=== PATIENT | female | born 1930 | race Caucasian/White ===

== ENCOUNTER 2017-07-15 09:30 | Inpatient (IN) | payer MEDICARE ==
[2017-07-15] MEDS ORDERED: fentaNYL* 50 MCG/ML 2 ML VIAL (100 MCG VIAL) ONE ×2 (09:58→10:57)
[2017-07-15] MEDS ORDERED: Midazolam* 1 MG/ML 10 ML VIAL (10 MG) ONE (09:58)
[2017-07-15] MEDS ORDERED: VERAPAMIL 2.5 MG/ML 4 ML VIAL ONE (09:58)
[2017-07-15] MEDS ORDERED: nitroGLYCERIN DRIP* 25,000 MCG/250 ML BTL ONE (09:59)
[2017-07-15] MEDS ORDERED: Ticagrelor* 90 MG TAB PO ONE (09:59)
[2017-07-15] MEDS ORDERED: Heparin(*) 1000 UNIT/ML 10 ML VIAL CATH LAB IV ONE (09:59)
[2017-07-15] MEDS ORDERED: Heparin 2 UNITS/ML IVPREMIX* 2,000 ML IV ONE (09:59)
[2017-07-15] MEDS ORDERED: Nitroglycerin TAB 0.4 MG* 0.4 MG TAB ONE (09:59)
[2017-07-15] MEDS ORDERED: Lidocaine 1% INJ* 10 MG/ML 30 ML SDV ONE (09:59)
[2017-07-15] MEDS ORDERED: Heparin VIAL(*) 5000 UNITS/ML VIAL (FIVE THOUSAND) ONE (10:01)
[2017-07-15 10:02] LABS: ABS Basophils 0 10^3/ul (0-0.2); ABS Eosinophils 0.2 10^3/ul (0-0.6); ABS Lymphocytes 2.8 10^3/ul (1.0-4.8); ABS Monocytes 0.8 10^3/ul (0-0.8); ABS Neutrophils 7.3 10^3/ul (1.5-7.7); ABS Nucleated RBC 0 10^3/ul; Eosinophil % 2.2 % (0-6); Hematocrit 36 % (35-47); Hemoglobin 11.8 g/dl (12.0-16.0); Lymphocyte % 24.8 % (25-47); Mean Corpuscular HGB Conc 32 g/dl (31-36); Mean Corpuscular Hemoglobin 30 pg (27-31); Mean Corpuscular Volume 92 fL (80-97); Mean Platelet Volume 9 um3 (7.4-10.4); Nucleated Red Blood Cells % 0; Platelet Count 412 10^3/ul (150-450); Red Blood Count 3.94 10^6/ul (4.0-5.4); Red Cell Distribution Width 16 % (10.5-15); White Blood Count 11.2 10^3/ul (3.5-10.8)
[2017-07-15] MEDS ORDERED: Clopidogrel TAB* 300 MG ONE (10:06)
[2017-07-15 10:12] LABS: INR 0.93 (0.77-1.02)
[2017-07-15 10:13] LABS: EGFR Non-African American 60.4 (>60)
[2017-07-15] MEDS ORDERED: Metoprolol Tartrate IV* 1 MG/ML 5 ML VIAL ONE (10:14)
[2017-07-15] MEDS ORDERED: Iohexol 350 (CONTRAST) 200 ML MDV IV ONE (10:25)
--- NOTE | 2017-07-15 10:58 | RAD ---
Indication: Chest pain. Single frontal view of the chest performed at 1004 hours was reviewed. Comparison is made with previous exam dated March 19, 2010. Cardiomegaly is noted. Interstitial edema consistent with vascular congestion is noted. No pleural fluid is identified. IMPRESSION: CARDIOMEGALY WITH INTERSTITIAL EDEMA CONSISTENT WITH CHF.
--- NOTE | 2017-07-15 11:29 | ED ---
Elba Jacobson Gabriel, scribed for Harsha Reyes MD on 07/15/17 at 0943 . HPI Chest Pain - HPI Summary HPI Summary: This patient is a 86 year old F BIBA to [facility] accompanied by her family with a chief complaint of 10/10 CP she woke up. The patient rates the pain currently 2 /10 in severity located mid sternal and radiating into her neck. Patient reports SOB. Patient was [id number] mg of ASA by EMS and her CP has decreased. She reports having a similar pain a couple days ago. Code STEMI was called [employer] PROJECT MANAGER in ED. On arrival Dr. Reyes showed the first EKG to Dr. Hicks, microbiology lab manager, at bedside. He did not believe she was having a STEMI. - History of Current Complaint Hx Obtained From: Patient, EMS Onset/Duration: Started Hours Ago Timing: Constant Initial Severity: Severe Current Severity: Mild Pain Intensity: 2 Pain Scale Used: 0-10 Numeric Chest Pain Location: Mid Sternal Chest Pain Radiates: Yes Chest Pain Radiates To:: Neck Character: Pressure/Squeezing Alleviating Factor(s): Medication Associated Signs and Symptoms: Positive: Chest Pain, Shortness of Breath - Allergy/Home Medications Allergies/Adverse Reactions: Allergies Allergy/AdvReac Type Severity Reaction Status Date / Time Statins Allergy Unknown Verified 01/24/15 15:38 Reaction Details Home Medications: Home Medications Aspirin EC Low Dose* [Ecotrin EC Low Dose 81 MG*] 81 mg PO DAILY 07/15/17 [ History Confirmed 07/15/17] Cyanocobalamin TAB* [Vitamin B12 TAB*] 250 mcg PO DAILY 07/15/17 [History Confirmed 07/15/17] Hydrochlorothiazide TAB* [Hydrodiuril TAB*] 12.5 mg PO DAILY 07/15/17 [History Confirmed 07/15/17] Insulin GLARGINE(*) [Lantus(*)] 28 units SUBCUT BEDTIME 07/15/17 [History Confirmed 07/15/17] Metoprolol Succinate XL TAB* [Toprol XL TAB*] 25 mg PO DAILY 07/15/17 [History Confirmed 07/15/17] Omeprazole CAP* [Prilosec CAP* 20 MG] 20 mg PO DAILY 07/15/17 [History Confirmed 07/15/17] Quinapril (NF) [Accupril (NF)] 40 mg PO BID 07/15/17 [History Confirmed 07/15/17 ] glipiZIDE TAB.XL* [Glucotrol XL*] 10 mg PO DAILY 07/15/17 [History Confirmed 02/22] metFORMIN* [Glucophage 500 MG TAB *] 500 mg PO BID 07/15/17 [History Confirmed 07/15/17] PMH/Surg Hx/FS Hx/Imm Hx Infectious Disease History: Denies: Traveled Outside the [place] in Last 30 Days - Social History Alcohol Use: None Substance Use Type: Reports: None Smoking Status (MU): Former Smoker Review of Systems Positive: Chest Pain Positive: Shortness Of Breath All Other Systems Reviewed And Are Negative: Yes Physical Exam - Summary Physical Exam Summary: Appearance: Well-appearing, Well-nourished, slightly anxious Skin: Warm, dry, no diaphoresis. Eyes: Normal ENT: Normal Neck: Supple, nontender Respiratory: Clear to auscultation, Good peripheral Cardiovascular: Normal Abdomen: Soft, nontender Bowel: Present Musculoskeletal: Normal, Strength/ROM Intact Neurological: Normal, A&Ox3 Psychiatric: Normal Triage Information Reviewed: Yes Vital Signs On Initial Exam: Initial Vitals Temp Pulse Resp BP Pulse Ox 36.8 C 85 20 120/66 89 07/15/17 09:41 07/15/17 09:41 07/15/17 09:41 07/15/17 09:41 07/15/17 09:41 Vital Signs Reviewed: Yes Diagnostics - Vital Signs Vital Signs Temp Pulse Resp BP Pulse Ox 07/15/17 10:46 37.2 C 91 20 86/49 94 07/15/17 09:41 36.8 C 85 20 120/66 89 - Laboratory Lab Results: Lab Results 07/15/17 07/15/17 07/15/17 Range/Units 09:42 09:42 09:42 WBC 11.2 H (3.5-10.8) 10^3/ul RBC 3.94 L (4.0-5.4) 10^6/ul Hgb 11.8 L (12.0-16.0) g/dl Hct 36 (35-47) % MCV 92 (80-97) fL MCH 30 (27-31) pg MCHC 32 (31-36) g/dl RDW 16 H (10.5-15) % Plt Count 412 (150-450) 10^3/ul MPV 9 (7.4-10.4) um3 Neut % (Auto) 65.2 (38-83) % Lymph % (Auto) 24.8 L (25-47) % Montague % (Auto) 7.6 (1-9) % Eos % (Auto) 2.2 (0-6) % Baso % (Auto) 0.2 (0-2) % Absolute Neuts (auto) 7.3 (1.5-7.7) 10^3/ul Absolute Lymphs (auto) 2.8 (1.0-4.8) 10^3/ul Absolute Monos (auto) 0.8 (0-0.8) 10^3/ul Absolute Eos (auto) 0.2 (0-0.6) 10^3/ul Absolute Basos (auto) 0 (0-0.2) 10^3/ul Absolute Nucleated RBC 0 10^3/ul Nucleated RBC % 0 INR (Anticoag Therapy) 0.93 (0.77-1.02) APTT 28.4 (26.0-36.3) seconds Sodium 132 L (133-145) mmol/L Potassium 4.1 (3.5-5.0) mmol/L Chloride 100 L (101-111) mmol/L Carbon Dioxide 24 (22-32) mmol/L Anion Gap 8 (2-11) mmol/L BUN 23 (6-24) mg/dL Creatinine 0.89 (0.51-0.95) mg/dL Est GFR ( Amer) 77.7 (>60) Est GFR (Non-Af Amer) 60.4 (>60) BUN/Creatinine Ratio 25.8 H (8-20) Glucose 329 H (70-100) mg/dL Lactic Acid (0.5-2.0) mmol/L Calcium 9.0 (8.6-10.3) mg/dL Magnesium 1.8 L (1.9-2.7) mg/dL Total Bilirubin 0.40 (0.2-1.0) mg/dL AST 11 L (13-39) U/L ALT 7 (7-52) U/L Alkaline Phosphatase 75 (34-104) U/L Troponin I 0.09 H* (<0.04) ng/mL Total Protein 7.4 (6.4-8.9) g/dL Albumin 3.7 (3.2-5.2) g/dL Globulin 3.7 (2-4) g/dL Albumin/Globulin Ratio 1.0 (1-3) Blood Type Antibody Screen 07/15/17 07/15/17 Range/Units 09:42 09:44 WBC (3.5-10.8) 10^3/ul RBC (4.0-5.4) 10^6/ul Hgb (12.0-16.0) g/dl Hct (35-47) % MCV (80-97) fL MCH (27-31) pg MCHC (31-36) g/dl RDW (10.5-15) % Plt Count (150-450) 10^3/ul MPV (7.4-10.4) um3 Neut % (Auto) (38-83) % Lymph % (Auto) (25-47) % Montague % (Auto) (1-9) % Eos % (Auto) (0-6) % Baso % (Auto) (0-2) % Absolute Neuts (auto) (1.5-7.7) 10^3/ul Absolute Lymphs (auto) (1.0-4.8) 10^3/ul Absolute Monos (auto) (0-0.8) 10^3/ul Absolute Eos (auto) (0-0.6) 10^3/ul Absolute Basos (auto) (0-0.2) 10^3/ul Absolute Nucleated RBC 10^3/ul Nucleated RBC % INR (Anticoag Therapy) (0.77-1.02) APTT (26.0-36.3) seconds Sodium (133-145) mmol/L Potassium (3.5-5.0) mmol/L Chloride (101-111) mmol/L Carbon Dioxide (22-32) mmol/L Anion Gap (2-11) mmol/L BUN (6-24) mg/dL Creatinine (0.51-0.95) mg/dL Est GFR ( Amer) (>60) Est GFR (Non-Af Amer) (>60) BUN/Creatinine Ratio (8-20) Glucose (70-100) mg/dL Lactic Acid 3.0 H* (0.5-2.0) mmol/L Calcium (8.6-10.3) mg/dL Magnesium (1.9-2.7) mg/dL Total Bilirubin (0.2-1.0) mg/dL AST (13-39) U/L ALT (7-52) U/L Alkaline Phosphatase (34-104) U/L Troponin I (<0.04) ng/mL Total Protein (6.4-8.9) g/dL Albumin (3.2-5.2) g/dL Globulin (2-4) g/dL Albumin/Globulin Ratio (1-3) Blood Type A Positive Antibody Screen Positive Result Diagrams: 07/15/17 09:42 07/15/17 09:42 Lab Statement: Any lab studies that have been ordered have been reviewed, and results considered in the medical decision making process. - Radiology CXR Radiology Interpretation Completed By: Radiologist - CARDIOMEGALY WITH INTERSTITIAL EDEMA CONSISTENT WITH CHF. ED physician has reviewed this radiology report. - EKG 0952 Cardiac Rate: NL EKG Rhythm: Sinus Rhythm Chest Pain Course/Dx - Course Assessment/Plan: persistnet R sided Elevations seen on repeat EKGs, patient given 325mg ASA prior to arrival in ED, evaluated by microbiology lab manager at bedside, taken to golf course laborer - Diagnoses Provider Diagnoses: STEMI (ST elevation myocardial infarction) During the Visit The Following Alert/Code Occurred: STEMI - Provider Notifications Discussed Care Of Patient With: Sal Hicks Discharge - Discharge Plan Condition: Critical Disposition: ADMITTED TO [facility] Discharge Disposition Comment: taken to golf course laborer The documentation as recorded by the Elba sifuentes Gabriel accurately reflects the service I personally performed and the decisions made by Amy haro Dong, MD.
[2017-07-15] MEDS ORDERED: Ondansetron INJ* 2 MG/ML VIAL ONE (11:41)
[2017-07-15] MEDS ORDERED: NS 0.9% 1000 ML* 1,000 ML IV SCH (12:00)
--- NOTE | 2017-07-15 12:08 | HP ---
CC: Dr. Margy Wilkins; Dr. Deandra Hammond * ADMISSION HISTORY AND PHYSICAL: DATE OF ADMISSION: 07/15/17 INDICATION FOR ADMISSION: Inferior wall myocardial infarction, atrial fibrillation. HISTORY OF PRESENT ILLNESS: The patient is an 86-year-old woman, who has been having intermittent chest pain for the past week. She describes it as a pressure in the center of her chest. Sometimes it is epigastric in discomfort. It does not radiate. She does get some mild nausea associated with it. She has no diaphoresis. This morning, she got up and started having the same discomfort. It was much worse that she had ever had in the past. She rated it as an 8/10. She was short of breath with discomfort. She had the same discomfort and some mild nausea associated with it. She called her daughter, who immediately called the ambulance. On arrival of the ambulance, the patient' s EKG showed atrial fibrillation with concerns of ST-segment elevations in the inferior leads. The patient was transported to the emergency room. On arrival in the emergency room, the patient was continued to have this discomfort. It is decreased to a 4/10. Her initial EKG demonstrates atrial fibrillation with ST-segment elevations in leads III, aVF with ST-segment depressions in leads V2 and V3. PAST MEDICAL HISTORY: Significant for diabetes, hypertension, history of paroxysmal atrial fibrillation, history of posttraumatic subdural hematoma secondary to a fall in 2005. OUTPATIENT MEDICATIONS: 1. Accupril 40 mg a day. 2. Metformin 500 mg 2 tablets a day. 3. Glipizide 10 mg a day. 4. Aspirin 81 mg a day. 5. Toprol-XL 25 mg a day. 6. Hydrochlorothiazide 12.5 mg a day. 7. Omeprazole 20 mg a day. 8. Insulin as directed. ALLERGIES: She is intolerant of statin therapy. FAMILY HISTORY: Father of myocardial infarction at 64. SOCIAL HISTORY: She lives alone. She lives independently. She denies tobacco or alcohol use. REVIEW OF SYSTEMS: Negative for fevers or chills. Negative for changes in bowel or bladder habits. Negative for weight changes. Other 10-point review was unremarkable. PHYSICAL EXAMINATION VITAL SIGNS: Height is 5 feet 1 inch, weight is 140 pounds, temperature 98.3, heart rate is 85, respiratory rate is 20, blood pressure 120/66. HEENT: Sclerae anicteric. Oropharynx is pink without erythema. Carotids are 2 + without bruits. NECK: JVD is normal. Thyroid is normal. LUNGS: Have mild rales at the bases. There is no dullness to percussion. CARDIAC: S1, S2, regular. No murmurs, rubs, or gallops. ABDOMEN: Soft, nontender, nondistended with normoactive bowel sounds. EXTREMITIES: Showed no edema. She has 2+ pulses throughout. NEUROLOGIC: The patient is awake, alert, and oriented. She moves all 4 extremities equally. DIAGNOSTIC STUDIES/LAB DATA: The patient's laboratory studies from 05/02/17 shows her chemistries are within normal limits. BUN 22, creatinine 0.82. AST and ALT were normal at that time. Cholesterol levels in April of 2016 demonstrates a total cholesterol of 167, LDL of 99, HDL of 34. TSH was 1.26 in December of 2015. Again, laboratory studies from today in the emergency room are not back yet. EKG at 10 o'clock demonstrates normal sinus rhythm with ST-segment elevations in lead III, aVF with ST-segment depression in lead V2 and V3. IMPRESSION: This is an 86-year-old female with a history of hypertension, diabetes, who came to the emergency room with typical anginal-type symptoms. Her initial EKG in the emergency room is atrial fibrillation with ST-segment elevations. Repeat EKG at 10 o'clock demonstrates normal sinus rhythm with ST- segment elevations. PLAN: The patient will go to cardiac catheterization. The risks and benefits were described in great detail to the patient and her daughter. Further recommendations pending her cardiac catheterization. [id number]/[facility] #: [id number] [facility]ENTER[facility]ionic[facility]
[2017-07-15] MEDS ORDERED: Perflutren Lipid Microsphere* 3 ML VIAL ONE (13:13)
[2017-07-15] MEDS: Captopril TAB* 12.5 MG PO SCH (14:19)
[2017-07-15] MEDS: Metoprolol Tartrate TAB* 25 MG PO SCH ×2 (14:20→20:12)
--- NOTE | 2017-07-15 15:35 | ECHO ---
Patient: BRANDI CELESTIN [facility] Rec#: [id number] : 1930 Date: 07/15/2017 Age: 86y Height: 154.94 cm / 61.0 in Weight: 63.5 kg / 140.0 lbs Sex: F BSA: 1.62 Room#: ICU 1 Admit Date#: 07/15/2017 Type: Inpatient Referring: Deandra Hammond MD Reading: Sal Hicks MD Claims Attorney: Katherin Burrows,JESSICACS,RDMS CC: Margy Wilkins MD Transthoracic Echocardiogram Indication: Acute Myocardial Infarction BP: 86/49 HR: 68 Rhythm: NSR Findings History: S/P STEMI and PCI, DM, HTN, syncope Technical Comments: The study quality is fair. The study was technically limited due to the patient's inability to lay in the left lateral decubitus position. Left Ventricle: The left ventricular chamber size is normal. Mild concentric left ventricular hypertrophy is observed. There are multiple regional wall motion abnormalities. There is moderately decreased left ventricular systolic function. The estimated ejection fraction is 35-40%. There is no consistent Doppler evidence of clinically significant diastolic dysfunction. The apical lateral wall segment is hypokinetic (score 2). The basal inferior, mid inferior, and apical inferior wall segments are akinetic (score 3). Overall wallmotion score index is 2.75 Left Atrium: The left atrium is moderate to severely dilated. Right Ventricle: The right ventricular chamber size and systolic function are within normal limits. Right Atrium: The right atrial cavity size is normal. Aortic Valve: The aortic valve is trileaflet. The aortic valve leaflets are mildly thickened. Systolic excursion of the aortic valve cusps is reduced. There is a trace of aortic regurgitation. There is no evidence of aortic stenosis. Mitral Valve: Severe mitral annular calcification present. The mitral valve leaflets are mildly thickened. There is moderate to severe mitral regurgitation. There is mild mitral stenosis. Tricuspid Valve: The tricuspid valve leaflets are normal. There is no evidence of tricuspid valve regurgitation. Unable to estimate the right ventricular systolic pressure. Pulmonic Valve: There is no evidence of pulmonic valve thickening. There is no evidence of pulmonic regurgitation. Pericardium: There is no significant pericardial effusion. Aorta: There is borderline dilatation of the ascending aorta. The aortic arch is not well visualized. There is no dilation of the aortic root. Pulmonary Artery: The main pulmonary artery is not well visualized. Venous: The inferior vena cava is dilated. There is a greater than 50% respiratory change in the inferior vena cava dimension. Contrast: Definity was used to optimize study. A total of 3 ml was used Conclusions Mild concentric left ventricular hypertrophy is observed. There is moderately decreased left ventricular systolic function. The estimated ejection fraction is 35-40%. The apical lateral wall segment is hypokinetic (score 2). The basal inferior, mid inferior, and apical inferior wall segments are akinetic (score 3). The right ventricular chamber size and systolic function are within normal limits. The left atrium is moderate to severely dilated. There is a trace of aortic regurgitation. There is moderate to severe mitral regurgitation. There is no evidence of tricuspid valve regurgitation. Unable to estimate the right ventricular systolic pressure. There is no significant pericardial effusion. Compared to study of 02/17/10, the LV dysfunction and MR are new Measurements Name Value Normal Range RVIDd (AP) 2D 2 cm (0.9 - 2.6) RVDdMajor (2D) 2.5 cm (2.2 - 4.4) RAd ISD 4CH 4.4 cm (3.4 - 4.9) RA (A4C)W 3.1 cm (2.9 - 4.6) IVSd (2D) 1.2 cm (0.6 - 1) LVPWd (2D) 1.3 cm (0.6 - 1) LVIDd (2D) 4.6 cm (3.6 - 5.4) LVIDs (2D) 3.7 cm - LV FS (2D) 21 % (25 - 45) Aortic Annulus 2 cm (1.4 - 2.6) Ao root diameter (2D) 2.8 cm (2.1 - 3.5) Ascending Ao 3.5 cm (2.1 - 3.4) LA dimension (AP) 2D 4.1 cm (2.3 - 3.8) LAd ISD 4CH 6.1 cm (2.9 - 5.3) LA ISD 4CH W 6 cm (2.5 - 4.5) Name Value Normal Range LA ESV SP 4CH (A/L) 100.11 ml - LA ESV SP 2CH (A/L) 127.3 ml - LA ESV BP (A/L) 115.32 ml - LA ESV BP (A/L) index 71 ml/m2 - LA ESV SP 4CH (MOD) 93.59 ml - LA ESV SP 2CH (MOD) 118.54 ml - Name Value Normal Range MV E-wave Vmax 1.2 m/sec - MV deceleration time 206 msec - MV A-wave Vmax 0.9 m/sec - MV E:A ratio 1.3 ratio - LV septal e' Vmax 0.03 m/sec - LV lateral e' Vmax 0.07 m/sec - LV E:e' septal ratio 40 ratio - LV E:e' lateral ratio 17 ratio - Name Value Normal Range AV Vmax 1.8 m/sec - AV VTI 46 cm - AV peak gradient 13 mmHg - AV mean gradient 7.8 mmHg - LVOT Vmax 0.7 m/sec - LVOT VTI 20 cm - LVOT peak gradient 2 mmHg - LVOT mean gradient 1.1 mmHg - JOSEPHINE Vmax 0.3 m/sec - Name Value Normal Range MV Vmax 1.4 m/sec - MV VTI 41 cm - MV peak gradient 8 mmHg - MV mean gradient 2.9 mmHg - MV PHT 80 msec - MR Vmax 4.9 m/sec - MR VTI 180 cm - MR flow (PISA) 79 ml/sec - MR PISA radius 0.6 cm - MR alias Vmax 31 cm/sec - MVA (PHT) 2.5 cm2 - Name Value Normal Range RAP 8 mmHg - IVC diameter 2.3 cm - Name Value Normal Range PV Vmax 0.6 m/sec - PV peak gradient 1.4 mmHg - Wallmotion BAS Not Seen BA Not Seen BAL Not Seen ANA Not Seen BI Akinetic BIS Not Seen MAS Not Seen MA Not Seen MAL Not Seen MIL Not Seen TN Akinetic MIS Not Seen Not Seen AA Not Seen AL Hypokinetic AI Akinetic APEX Hypokinetic
[2017-07-15] MEDS ORDERED: Furosemide IV* 10 MG/ML 2 ML VIAL (20 MG) IV ONE (16:13)
[2017-07-15] MEDS ORDERED: Furosemide IV* 10 MG/ML 2 ML VIAL (20 MG) ONE (16:20)
[2017-07-15] MEDS ORDERED: Enoxaparin(*) 60 MG/0.6 ML SYR SUBCUT SCH (17:00)
[2017-07-15] MEDS ORDERED: Dextrose 50% Syringe 50 ML* 25 GM/50 ML SYRINGE IV PUSH PRN (17:35)
[2017-07-15] MEDS: Insulin LISPRO* 1 UNITS UNIT SUBCUT SCH (17:56)
[2017-07-16] MEDS: Captopril TAB* 12.5 MG PO SCH ×2 (00:38→08:08)
[2017-07-16] MEDS: Insulin LISPRO* 1 UNITS UNIT SUBCUT SCH (00:39)
[2017-07-16] MEDS: Metoprolol Tartrate TAB* 25 MG PO SCH ×2 (03:50→06:27)
[2017-07-16] MEDS ORDERED: Nitroglycerin 2% OINT* 1 GM PAK TOPICAL SCH (06:00)
[2017-07-16 06:47] LABS: EGFR Non-African American 63.7 (>60)
[2017-07-16] MEDS ORDERED: Insulin LISPRO* 1 UNITS UNIT SUBCUT SCH (07:30)
[2017-07-16 08:11] VITALS: BP 135/76
--- NOTE | 2017-07-16 08:21 | CATH ---
CC: Dr. Hicks. CATH REPORT: DATE OF PROCEDURE: 07/15/17 CASHIER RECEPTIONIST: Dr. Hicks. PROCEDURES: Right radial artery access, abandoned. right common femoral artery access sheath 6F, bilateral selective coronary cineangiography, left heart catheterization, left ventriculography, right femoral artery angiogram, Angio-Seal RFA. HISTORY: An 86-year-old woman presenting with atrial fibrillation and chest pain, inferior ST elevation, followed by spontaneous reversion to sinus rhythm. She was seen by Dr. Hicks in the ER, was brought to the lab aide for emergent catheterization. PROCEDURE ACCESS: Right radial artery, evaluated with ultrasound, diameter barely 2 mm with heavy focal intimal calcification. The artery was easily entered with ultrasound guidance, but the wire would not advance fully; radial access was therefore abandoned. The right groin was prepped, draped, anesthetized, and evaluated with ultrasound; entry point was selected with ultrasound. Sheath entry 6F. MEDICATIONS: 1. Subcu lidocaine. 2. IV Versed. 3. IV fentanyl. DIAGNOSTIC CATHETER: 6FL4, 6FR4, 6FI may used for the RCA, 6F pigtail. HEMODYNAMICS: Initial BP 102/62, LV post angiography 104/10-27, no aortic valve gradient on pullback. ANGIOGRAPHY: She was given IV volume loading for systolic blood pressure initially in the 80 to 90s. RFA sheath entry is in segment 2, just above an eccentric plaque, which was identified with ultrasound. The left coronary artery as well as the right coronary artery are all heavily calcified. The mitral annulus is densely calcified. Left Main: The left main is normal without stenosis. LAD: The LAD has an ostial 40% to 50% stenosis. The LAD then supplies a moderate caliber diagonal which has lengthy proximal 80% stenosis. The LAD beyond this diagonal in its mid portion has tubular 80% stenosis. Distally, the LAD ends past the apex. Circumflex: The circumflex is not dominant, is calcified, diffusely diseased, has a fairly discrete 90% stenosis in its proximal portion, then supplies a single large marginal which has diffuse scattered plaquing including at a bifurcation point with severe distal diffuse disease. The OM is graftable. RCA: The RCA has moderate proximal tubular stenosis, has a more discrete 75% stenosis in its mid portion, at the acute margin there is a 95% stenosis straddling the origin of a small RV branch, the PDA is small followed by several small posterolaterals. There is moderate stenosis at the crux. There are left to right distal collaterals. LV GRAM: 14 cc per second for 2 seconds reveals moderate MR, inferior hypokinesis, estimated LVEF of 40% to 45%. CONCLUSION: 1. Severe three-vessel disease. 2. Markedly elevated filling pressures. 3. LV systolic dysfunction with regional wall motion abnormality. 4. Unsuccessful right radial access feasibility due to small vessel size with heavy intimal calcification, successful right femoral access, Angio-Seal. [id number]/[facility] #: [id number] [facility]ENTERDionicio
--- NOTE | 2017-07-16 08:30 | TRS ---
CC: Dr. Margy Wilkins; Dr. Hammond; Dr. Harshal Wells, [facility] TRANSFER SUMMARY: TODAY'S DATE: 07/15/17 DATE OF TRANSFER: 07/16/17 INDICATION FOR TRANSFER: Acute myocardial infarction, three-vessel coronary artery disease, need for coronary artery bypass surgery. HISTORY OF PRESENT ILLNESS: The patient is an 86-year-old woman with history of diabetes and hyperte nsion who came to the emergency room on 07/15/17 with an acute inferior wall myocardial infarction. Please see my admission history and physical for details of her presentation. Patient underwent a cardiac catheterization by Dr. Hammond. The cardiac catheterization showed severe three-vessel coronary artery disease with the left anterior descending artery showing moderate disea se to the proximal vessel, a long 90% stenosis to the mid LAD. The distal LAD had good vessel with a 2-mm vessel. The D1 vessel off of the LAD had a long 90% stenosis of the proximal portion. The left circumflex artery had a proximal 80% stenosis and a mid 90% stenosis. The right coronary artery had a proximal 70% stenosis with haziness consistent with possible thrombus. Her distal right coronary artery had sequential 80% stenosis. The PDA was a small vessel about 1.5 mm in size. Posterolateral branches were same, about 1.5 mm in size. Patient had an echocardiogram today which demonstrated moderately reduced LV systolic function, eject ion fraction of 35% with inferior wall severe hypokinesis. She also had [id number] mitral reg urgitation. After reviewing the cardiac catheterization and the echocardiogram, it was determined the patient wou ld be best served with coronary artery bypass surgery with mitral valve repair. This case was discus sed with Dr. Wells who accepts the patient in transfer. TRANSFER MEDICATIONS: 1. Aspirin 81 mg a day. 2. Metoprolol tartrate 25 mg q.6 hours. 3. Captopril 325 mg p.o. 3 times a day. 4. Nitroglycerin topical. Please note the patient did get 300 mg of Plavix in the emergency room at approximately 9 o'clock in the morning on 07/15/17. ALLERGIES: STATIN medications, unclear what the true allergy is. DISPOSITION: The patient will be transferred to [facility] under the care of Dr. Jordi west. [id number]/[facility] #: [id number]
[2017-07-16] MEDS ORDERED: Aspirin Low Dose CHEW TAB* 81 MG PO SCH (09:00)
== END 2017-07-16 09:00 | disposition short-term general hospital (02) | DRG 282 ==
LOC: ED 09:30 → CHICATH 10:35 → ICU 12:07
PROVIDERS: ADMIT Internal Medicine Cardiovascular Disease; ATTEND Specialist
PROC: B211YZZ Fluoroscopy of Multiple Coronary Arteries using Other Contrast (ICD-10-PCS; 2017-07-15)
PROC: B215YZZ Fluoroscopy of Left Heart using Other Contrast (ICD-10-PCS; 2017-07-15)
PROC: 4A023N7 Measurement of Cardiac Sampling and Pressure, Left Heart, Percutaneous Approach (ICD-10-PCS; principal; 2017-07-15 09:30)
DX: I21.19 ST elevation (STEMI) myocardial infarction involving other coronary artery of inferior wall (principal); I48.0 Paroxysmal atrial fibrillation; E11.9 Type 2 diabetes mellitus without complications; I25.119 Atherosclerotic heart disease of native coronary artery with unspecified angina pectoris; I11.9 Hypertensive heart disease without heart failure; I34.0 Nonrheumatic mitral (valve) insufficiency; Z79.84 Long term (current) use of oral hypoglycemic drugs; Z79.4 Long term (current) use of insulin; Z79.82 Long term (current) use of aspirin; Z79.899 Other long term (current) drug therapy; Z88.8 Allergy status to other drugs, medicaments and biological substances; Z82.49 Family history of ischemic heart disease and other diseases of the circulatory system
CPT/HCPCS: 36415; 71045; 80048; 80053; 83605; 83735; 83880; 84484; 85025; 85610; 85730; 86850; 86870; 86880; 86900; 86901; 87641; 93005; 93306; 93458; 99156; 99157; A9270-GY; C1760; C1769; C1887; C8929; J1644; J1650; J1940; J2250; J2405; J3010; J3490

== ENCOUNTER 2020-02-07 09:45 | Inpatient (IN) ==
[2020-02-07 10:18] LABS: ABS Lymphocytes 1.4 10^3/ul (1.0-4.8); ABS Monocytes 1.2 10^3/ul (0-0.8); ABS Neutrophils 13.1 10^3/ul (1.5-7.7); Eosinophil % 0.3 %; Hematocrit 39 % (35-47); Hemoglobin 13.2 g/dL (12.0-16.0); Mean Corpuscular HGB Conc 34 g/dL (31-36); Mean Corpuscular Hemoglobin 32 pg (27-31); Mean Corpuscular Volume 97 fL (80-97); Mean Platelet Volume 8.5 fL (7.4-10.4); Platelet Count 324 10^3/uL (150-450); Red Blood Count 4.06 10^6 /uL (3.70-4.87); Red Cell Distribution Width 14 % (10-15); White Blood Count 15.9 10^3/uL (3.5-10.8)
[2020-02-07 10:25] LABS: Activated Partial Thrombo Time 27.2 seconds (26.0-38.0); INR 1.04 (0.82-1.09)
[2020-02-07 10:34] LABS: Albumin 3.9 g/dL (3.2-5.2); Albumin/Globulin Ratio 1.1 (1-3); BUN/Creatinine Ratio 25.4 (8-20); Calcium 8.7 mg/dL (8.6-10.3); EGFR African American 100.7 (>60); EGFR Non-African American 83.3 (>60); Globulin 3.7 g/dL (2-4); Potassium 4.1 mmol/L (3.5-5.0); Total Bilirubin 1.5 mg/dL (0.2-1.0); Total Protein 7.6 g/dL (6.4-8.9)
[2020-02-07 10:38] LABS: Troponin I 0.01 ng/mL (<0.03)
[2020-02-07] MEDS ORDERED: Piperacillin/Tazobac ADVAN 3.375 GM in NS 0.9% 100 ml BAG 100 ML IVPB ONE (12:32)
[2020-02-07] MEDS ORDERED: Morphine 2 MG/ML SYRINGE IV PRN (14:03)
[2020-02-07] MEDS ORDERED: NS 0.9% 1000 ml BAG 1,000 ML IV SCH (14:15)
[2020-02-07] MEDS ORDERED: Dextrose 50% Syringe 50 ml 25 GM/50 ML SYRINGE IV PUSH PRN (14:23)
[2020-02-07] MEDS ORDERED: Iodixanol (CONTRAST) 320 MG/ML 100 ML SDV IV ONE (17:11)
[2020-02-07] MEDS ORDERED: NS 0.9% IV ONE (17:15)
[2020-02-07] MEDS: Piperacillin/Tazobac ADVAN 3.375 GM in NS 0.9% 100 ml BAG 100 ML IV SCH (17:54)
[2020-02-07] MEDS ORDERED: Furosemide 40 mg/4 ml IV VIAL IV SLOW PU ONE (19:35)
[2020-02-07] MEDS ORDERED: Nitro 2% OINT (Nitroglycerin) 1 INCH/PAK TOPICAL ONE (19:48)
[2020-02-07] MEDS ORDERED: Heparin 5000 UNITS/ML 1 mL VIAL SUBCUT SCH (22:00)
[2020-02-08] MEDS: Piperacillin/Tazobac ADVAN 3.375 GM in NS 0.9% 100 ml BAG 100 ML IV SCH ×3 (00:15→21:22)
[2020-02-08 06:09] LABS: ABS Basophils 0.1 10^3/ul (0-0.2); ABS Lymphocytes 2.4 10^3/ul (1.0-4.8); ABS Monocytes 0.7 10^3/ul (0-0.8); ABS Neutrophils 6.8 10^3/ul (1.5-7.7); Eosinophil % 0.1 %; Hematocrit 37 % (35-47); Hemoglobin 12.7 g/dL (12.0-16.0); Lymphocyte % 23.9 %; Mean Corpuscular HGB Conc 34 g/dL (31-36); Mean Corpuscular Hemoglobin 33 pg (27-31); Mean Corpuscular Volume 95 fL (80-97); Mean Platelet Volume 8.7 fL (7.4-10.4); Platelet Count 316 10^3/uL (150-450); Red Blood Count 3.91 10^6 /uL (3.70-4.87); Red Cell Distribution Width 14 % (10-15)
[2020-02-08 06:33] LABS: Albumin 3.7 g/dL (3.2-5.2); BUN/Creatinine Ratio 18.7 (8-20); Calcium 8.7 mg/dL (8.6-10.3); EGFR African American 88.4 (>60); EGFR Non-African American 73.1 (>60); Globulin 3.6 g/dL (2-4); Potassium 3.1 mmol/L (3.5-5.0); Total Bilirubin 2.9 mg/dL (0.2-1.0); Total Protein 7.3 g/dL (6.4-8.9)
[2020-02-08] MEDS: Pantoprazole VIAL 40 MG VIAL IV SCH (08:42)
[2020-02-08] MEDS: KCL 20 MEQ/100 ML IVPREMIX 20 MEQ/100 ML BAG IV SCH ×3 (10:59→21:04)
[2020-02-08] MEDS ORDERED: Furosemide 20 mg/2 ml IV VIAL IV SLOW PU ONE (13:59)
[2020-02-08 16:08] LABS: BUN/Creatinine Ratio 17.5 (8-20); Calcium 9.2 mg/dL (8.6-10.3); EGFR African American 82.1 (>60); EGFR Non-African American 67.8 (>60); Potassium 3.8 mmol/L (3.5-5.0)
[2020-02-08] MEDS ORDERED: fentaNYL 100 mcg/2 ml 50 MCG/ML VIAL ONE ×2 (16:58→17:38)
[2020-02-08] MEDS ORDERED: Lidocaine 2% PF 5 ML VIAL ONE (17:30)
[2020-02-08] MEDS ORDERED: Ondansetron 4 mg VIAL 2 MG/ML 2 ml VIAL ONE (17:30)
[2020-02-08] MEDS ORDERED: Propofol 10 MG/ML 20 ML BTL ONE (17:30)
[2020-02-08] MEDS ORDERED: EPHEDrine (Pressors) 50 MG/ML VIAL ONE (17:30)
[2020-02-08] MEDS ORDERED: Succinylcholine 200 mg VIAL 20 mg/ml 10 ml VIAL (200 mg) ONE (17:30)
[2020-02-08] MEDS ORDERED: KCL 20 MEQ/100 ML IVPREMIX 20 MEQ/100 ML BAG ONE (20:52)
[2020-02-08] MEDS: Heparin 5000 UNITS/ML 1 mL VIAL SUBCUT SCH (21:08)
[2020-02-08] MEDS ORDERED: Ondansetron 4 mg VIAL 2 MG/ML 2 ml VIAL IV PRN (23:46)
[2020-02-09] MEDS: Piperacillin/Tazobac ADVAN 3.375 GM in NS 0.9% 100 ml BAG 100 ML IV SCH ×2 (04:28→12:35)
[2020-02-09] MEDS: Heparin 5000 UNITS/ML 1 mL VIAL SUBCUT SCH ×3 (05:17→20:50)
[2020-02-09 06:27] LABS: ABS Lymphocytes 1.8 10^3/ul (1.0-4.8); ABS Monocytes 0.9 10^3/ul (0-0.8); ABS Neutrophils 8.8 10^3/ul (1.5-7.7); Eosinophil % 0.1 %; Hematocrit 34 % (35-47); Hemoglobin 11.9 g/dL (12.0-16.0); Lymphocyte % 15.4 %; Mean Corpuscular HGB Conc 35 g/dL (31-36); Mean Corpuscular Hemoglobin 34 pg (27-31); Mean Corpuscular Volume 96 fL (80-97); Platelet Count 301 10^3/uL (150-450); Red Blood Count 3.56 10^6 /uL (3.70-4.87); Red Cell Distribution Width 14 % (10-15); White Blood Count 11.5 10^3/uL (3.5-10.8)
[2020-02-09 06:38] LABS: Albumin 3.7 g/dL (3.2-5.2); Calcium 8.4 mg/dL (8.6-10.3); EGFR African American 80.9 (>60); EGFR Non-African American 66.9 (>60); Globulin 3.6 g/dL (2-4); Potassium 3.4 mmol/L (3.5-5.0); Total Bilirubin 1.6 mg/dL (0.2-1.0); Total Protein 7.3 g/dL (6.4-8.9)
[2020-02-09] MEDS: Pantoprazole VIAL 40 MG VIAL IV SCH (08:40)
[2020-02-09] MEDS ORDERED: Potassium Chlor 20 meq TAB.ER PO ONE (08:55)
[2020-02-09 09:16] LABS: C Reactive Protein 77.08 mg/L (<8.01)
[2020-02-09] MEDS ORDERED: Furosemide 20 mg/2 ml IV VIAL IV SLOW PU ONE ×2 (12:15→20:00)
[2020-02-09] MEDS ORDERED: Insulin GLARGINE 100 un/ml 10 ml VIAL SUBCUT SCH (21:00)
[2020-02-10 05:52] LABS: ABS Basophils 0.1 10^3/ul (0-0.2); ABS Eosinophils 0.5 10^3/ul (0-0.6); ABS Lymphocytes 2.4 10^3/ul (1.0-4.8); ABS Neutrophils 3.8 10^3/ul (1.5-7.7); Eosinophil % 6.7 %; Hematocrit 31 % (35-47); Hemoglobin 10.7 g/dL (12.0-16.0); Lymphocyte % 31.2 %; Mean Corpuscular HGB Conc 35 g/dL (31-36); Mean Corpuscular Hemoglobin 33 pg (27-31); Mean Corpuscular Volume 95 fL (80-97); Mean Platelet Volume 8.7 fL (7.4-10.4); Platelet Count 271 10^3/uL (150-450); Red Blood Count 3.22 10^6 /uL (3.70-4.87); Red Cell Distribution Width 14 % (10-15); White Blood Count 7.7 10^3/uL (3.5-10.8)
[2020-02-10] MEDS: Heparin 5000 UNITS/ML 1 mL VIAL SUBCUT SCH (06:07)
[2020-02-10 06:08] LABS: Albumin 3.3 g/dL (3.2-5.2); Calcium 8.1 mg/dL (8.6-10.3); Potassium 3.3 mmol/L (3.5-5.0); Total Bilirubin 0.9 mg/dL (0.2-1.0)
[2020-02-10 06:14] LABS: C Reactive Protein 63.16 mg/L (<8.01); EGFR African American 106.2 (>60); EGFR Non-African American 87.8 (>60); Globulin 3.3 g/dL (2-4); Total Protein 6.6 g/dL (6.4-8.9)
[2020-02-10] MEDS ORDERED: Potassium Chlor 20 meq TAB.ER PO ONE (08:47)
[2020-02-10] MEDS: Pantoprazole VIAL 40 MG VIAL IV SCH (08:49)
[2020-02-10 11:42] VITALS: BP 132/54
== END 2020-02-10 14:25 | disposition home health service (06) | DRG 871 ==
LOC: ED 09:45 → MEDTELE 14:03
PROVIDERS: ADMIT Internal Medicine; ATTEND Student in an Organized Health Care Education/Training Program

== ENCOUNTER 2020-07-25 12:25 | Inpatient (IN) ==
[2020-07-25 13:28] LABS: ABS Basophils 0.1 10^3/ul (0-0.2); ABS Eosinophils 0.1 10^3/ul (0-0.6); ABS Lymphocytes 2.2 10^3/ul (1.0-4.8); ABS Monocytes 0.9 10^3/ul (0-0.8); Eosinophil % 0.9 %; Hematocrit 37 % (35-47); Hemoglobin 11.9 g/dL (12.0-16.0); Lymphocyte % 15.1 %; Mean Corpuscular HGB Conc 33 g/dL (31-36); Mean Corpuscular Hemoglobin 32 pg (27-31); Mean Corpuscular Volume 97 fL (80-97); Mean Platelet Volume 8.6 fL (7.4-10.4); Platelet Count 320 10^3/uL (150-450); Red Blood Count 3.78 10^6 /uL (3.70-4.87); Red Cell Distribution Width 15 % (10-15); White Blood Count 14.2 10^3/uL (3.5-10.8)
[2020-07-25 13:46] LABS: Albumin 3.8 g/dL (3.2-5.2); Albumin/Globulin Ratio 1.1 (1-3); BUN/Creatinine Ratio 35.4 (8-20); C Reactive Protein 1.64 mg/L (<8.01); Calcium 8.5 mg/dL (8.6-10.3); EGFR African American 104.3 (>60); EGFR Non-African American 86.2 (>60); Globulin 3.4 g/dL (2-4); Potassium 3.7 mmol/L (3.5-5.0); Total Bilirubin 0.3 mg/dL (0.2-1.0); Total Protein 7.2 g/dL (6.4-8.9)
[2020-07-25] MEDS ORDERED: Morphine 2 MG/ML SYRINGE IV ONE (15:06)
[2020-07-25] MEDS ORDERED: Dextrose 50% Syringe 50 ml 25 GM/50 ML SYRINGE IV PUSH PRN (15:29)
[2020-07-25] MEDS ORDERED: Magnesium Hydroxide LIQ 30 ML UDC PO PRN (15:59)
[2020-07-25] MEDS ORDERED: Senna TAB 8.6 mg TAB PO PRN (15:59)
[2020-07-25] MEDS ORDERED: Polyethylene Glycol 3350 17 GM PACKET PO PRN (15:59)
[2020-07-25] MEDS: Morphine 2 MG/ML SYRINGE IV PRN ×3 (16:19→21:36)
[2020-07-25 16:43] LABS: Urine Appearance Clear; Urine Bilirubin Negative (Negative); Urine Blood Negative (Negative); Urine Color Yellow; Urine Glucose Negative (Negative); Urine Ketones Negative (Negative); Urine Nitrite Negative (Negative); Urine Protein Negative (Negative); Urine Specific Gravity 1.014 (1.010-1.030); Urine Urobilinogen Negative (Negative)
[2020-07-25 17:14] LABS: Urine Bacteria Absent (Absent); Urine Red Blood Cell Trace(0-2/hpf) (Absent); Urine Squamous Epithelial Cell Present (Absent); Urine White Blood Cell 1+(6-10/hpf) (Absent)
[2020-07-25] MEDS ORDERED: Metoclopramide 5 MG/ML VIAL (10 mg) IV PRN (17:42)
[2020-07-26 06:21] LABS: Hematocrit 29 % (35-47); Hemoglobin 9.8 g/dL (12.0-16.0); Mean Corpuscular HGB Conc 34 g/dL (31-36); Mean Corpuscular Hemoglobin 33 pg (27-31); Mean Corpuscular Volume 95 fL (80-97); Mean Platelet Volume 8.8 fL (7.4-10.4); Platelet Count 302 10^3/uL (150-450); Red Blood Count 3.02 10^6 /uL (3.70-4.87); Red Cell Distribution Width 15 % (10-15); White Blood Count 14.1 10^3/uL (3.5-10.8)
[2020-07-26 06:38] LABS: Calcium 8.5 mg/dL (8.6-10.3); Potassium 3.7 mmol/L (3.5-5.0)
[2020-07-26 06:39] LABS: INR 1.12 (0.82-1.09)
[2020-07-26 06:43] LABS: BUN/Creatinine Ratio 42.9 (8-20); EGFR African American 108.2 (>60); EGFR Non-African American 89.4 (>60)
[2020-07-26 06:50] LABS: ABS Eosinophils 0.1 10^3/ul (0-0.6); ABS Lymphocytes 2.2 10^3/ul (1.0-4.8); ABS Monocytes 1.7 10^3/ul (0-0.8); ABS Neutrophils 10.2 10^3/ul (1.5-7.7); Eosinophil % 0.4 %; Lymphocyte % 15.3 %
[2020-07-26 09:35] LABS: Activated Partial Thrombo Time 26.2 seconds (26.0-38.0)
[2020-07-26] MEDS: Metoprolol Tartrate 5 mg VIAL 5 ml VIAL (1 mg/ml) IV SCH ×3 (09:57→21:27)
[2020-07-26] MEDS ORDERED: ceFAZolin 2 GM PREMIX 2 GM/50 ML BAG ONE (12:06)
[2020-07-26] MEDS ORDERED: Bupivacaine 0.5% SDV PF 30ML VIAL ONE (13:30)
[2020-07-26] MEDS ORDERED: Ondansetron ODT 4 mg TAB 4 MG TAB PO PRN (15:32)
[2020-07-26] MEDS ORDERED: HYDROmorphone 1 MG/1 ML SYRINGE IV PRN (15:32)
[2020-07-26] MEDS ORDERED: Naloxone 0.4 mg VIAL 0.4 mg/ml 1 ml VIAL IV PRN (15:32)
[2020-07-26] MEDS ORDERED: Polyethylene Glycol 3350 17 GM PACKET PO PRN (16:16)
[2020-07-26] MEDS ORDERED: Magnesium Hydroxide LIQ 30 ML UDC PO PRN (16:16)
[2020-07-26] MEDS ORDERED: Senna TAB 8.6 mg TAB PO PRN (16:16)
[2020-07-26] MEDS: Lactated Ringers 1000 ml BAG 1,000 ML IV SCH (18:22)
[2020-07-26 18:59] LABS: Hematocrit 25 % (35-47); Hemoglobin 8.2 g/dL (12.0-16.0)
[2020-07-26] MEDS: ceFAZolin 1 GM X 3 DOSES POST-OP Q8H (AddVan) IVPB SCH (20:50)
[2020-07-26] MEDS: Morphine 2 MG/ML SYRINGE IV PRN (21:25)
[2020-07-26] MEDS: Magnesium Hydroxide LIQ 30 ML UDC PO SCH (21:27)
[2020-07-27] MEDS: Metoprolol Tartrate 5 mg VIAL 5 ml VIAL (1 mg/ml) IV SCH ×2 (03:15→09:58)
[2020-07-27] MEDS ORDERED: Lactated Ringers 500 ml BAG 500 ML IV ONE (04:10)
[2020-07-27 04:23] LABS: Hematocrit 23 % (35-47); Hemoglobin 7.6 g/dL (12.0-16.0); Mean Corpuscular HGB Conc 34 g/dL (31-36); Mean Corpuscular Hemoglobin 32 pg (27-31); Mean Corpuscular Volume 96 fL (80-97); Mean Platelet Volume 8.9 fL (7.4-10.4); Platelet Count 262 10^3/uL (150-450); Red Blood Count 2.35 10^6 /uL (3.70-4.87); Red Cell Distribution Width 15 % (10-15); White Blood Count 14.2 10^3/uL (3.5-10.8)
[2020-07-27 04:27] LABS: ABS Lymphocytes 2.3 10^3/ul (1.0-4.8); ABS Monocytes 2.1 10^3/ul (0-0.8); ABS Neutrophils 9.8 10^3/ul (1.5-7.7); Eosinophil % 0.1 %; Lymphocyte % 16.5 %
[2020-07-27 04:38] LABS: BUN/Creatinine Ratio 39.1 (8-20); Calcium 8.3 mg/dL (8.6-10.3); EGFR African American 74.5 (>60); EGFR Non-African American 61.6 (>60); Potassium 4.1 mmol/L (3.5-5.0)
[2020-07-27] MEDS: ceFAZolin 1 GM X 3 DOSES POST-OP Q8H (AddVan) IVPB SCH ×2 (04:42→12:12)
[2020-07-27] MEDS: Lactated Ringers 1000 ml BAG 1,000 ML IV SCH (04:44)
[2020-07-27] MEDS: Magnesium Hydroxide LIQ 30 ML UDC PO SCH ×2 (08:07→21:19)
[2020-07-27] MEDS: Enoxaparin 30 MG/0.3 ML SYR SUBCUT SCH (12:11)
[2020-07-27 13:54] LABS: Urine Appearance Cloudy; Urine Bilirubin Negative (Negative); Urine Blood 1+ (Negative); Urine Color Yellow; Urine Glucose 1+(50 mg/dL) (Negative); Urine Ketones Trace (Negative); Urine Nitrite Negative (Negative); Urine Protein 1+(30 mg/dL) (Negative); Urine Specific Gravity 1.023 (1.010-1.030); Urine Urobilinogen Negative (Negative)
[2020-07-27 14:19] LABS: Urine Bacteria Absent (Absent); Urine Red Blood Cell Trace(0-2/hpf) (Absent); Urine Squamous Epithelial Cell Present (Absent); Urine White Blood Cell 3+(>20/hpf) (Absent)
[2020-07-27] MEDS: CMCS:Cyclosporine 0.05% OPHTH (NF) 0.4 ML VIAL BOTH EYES SCH (17:51)
[2020-07-27] MEDS: Insulin GLARGINE 100 un/ml 10 ml VIAL SUBCUT SCH (21:13)
[2020-07-27 21:50] LABS: Hematocrit 25 % (35-47); Hemoglobin 8.6 g/dL (12.0-16.0)
[2020-07-28 04:29] LABS: Hematocrit 24 % (35-47); Hemoglobin 8.2 g/dL (12.0-16.0); Mean Corpuscular HGB Conc 34 g/dL (31-36); Mean Corpuscular Hemoglobin 32 pg (27-31); Mean Corpuscular Volume 94 fL (80-97); Mean Platelet Volume 8.4 fL (7.4-10.4); Platelet Count 234 10^3/uL (150-450); Red Blood Count 2.55 10^6 /uL (3.70-4.87); Red Cell Distribution Width 15 % (10-15); White Blood Count 12.2 10^3/uL (3.5-10.8)
[2020-07-28 04:31] LABS: ABS Basophils 0.1 10^3/ul (0-0.2); ABS Eosinophils 0.2 10^3/ul (0-0.6); ABS Lymphocytes 2.6 10^3/ul (1.0-4.8); ABS Monocytes 1.7 10^3/ul (0-0.8); ABS Neutrophils 7.7 10^3/ul (1.5-7.7); Eosinophil % 1.4 %; Lymphocyte % 20.9 %
[2020-07-28] MEDS: Lactated Ringers 1000 ml BAG 1,000 ML IV SCH ×2 (04:38→17:16)
[2020-07-28 04:45] LABS: BUN/Creatinine Ratio 47.8 (8-20); Calcium 7.8 mg/dL (8.6-10.3); EGFR African American 100.7 (>60); EGFR Non-African American 83.3 (>60); Potassium 4.3 mmol/L (3.5-5.0)
[2020-07-28] MEDS: CMCS:Cyclosporine 0.05% OPHTH (NF) 0.4 ML VIAL BOTH EYES SCH ×2 (07:17→18:11)
[2020-07-28] MEDS: Magnesium Hydroxide LIQ 30 ML UDC PO SCH ×3 (07:59→21:17)
[2020-07-28] MEDS: Enoxaparin 30 MG/0.3 ML SYR SUBCUT SCH (12:37)
[2020-07-28] MEDS ORDERED: cefTRIAXone 1 gm/50 mL NS BAG 1 GM/50 ML BAG IVPB SCH (18:00)
[2020-07-28] MEDS: Insulin GLARGINE 100 un/ml 10 ml VIAL SUBCUT SCH (21:09)
[2020-07-29 05:24] LABS: ABS Basophils 0.1 10^3/ul (0-0.2); ABS Eosinophils 0.4 10^3/ul (0-0.6); ABS Lymphocytes 2.1 10^3/ul (1.0-4.8); ABS Monocytes 1.4 10^3/ul (0-0.8); Eosinophil % 3.3 %; Hematocrit 24 % (35-47); Hemoglobin 8.1 g/dL (12.0-16.0); Lymphocyte % 17.5 %; Mean Corpuscular HGB Conc 34 g/dL (31-36); Mean Corpuscular Hemoglobin 33 pg (27-31); Mean Corpuscular Volume 95 fL (80-97); Mean Platelet Volume 8.9 fL (7.4-10.4); Platelet Count 252 10^3/uL (150-450); Red Blood Count 2.49 10^6 /uL (3.70-4.87); Red Cell Distribution Width 15 % (10-15); White Blood Count 11.9 10^3/uL (3.5-10.8)
[2020-07-29] MEDS: CMCS:Cyclosporine 0.05% OPHTH (NF) 0.4 ML VIAL BOTH EYES SCH (05:32)
[2020-07-29 08:32] VITALS: BP 130/52
[2020-07-29] MEDS: Magnesium Hydroxide LIQ 30 ML UDC PO SCH (09:36)
== END 2020-07-29 10:16 | DRG 481 ==
LOC: ED 12:25 → SSU 15:17
PROVIDERS: ADMIT Hospitalist; ATTEND Hospitalist

== ENCOUNTER 2020-07-29 07:37 | Inpatient (IN) ==
[2020-07-29] MEDS ORDERED: Senna TAB 8.6 mg TAB PO PRN (11:03)
[2020-07-29] MEDS ORDERED: Al Hydrox/Mg Hydrox/Simet LIQ 30 ML UDC PO PRN (11:03)
[2020-07-29] MEDS ORDERED: Magnesium Hydroxide LIQ 30 ML UDC PO PRN (11:03)
[2020-07-29] MEDS ORDERED: Dextrose 50% Syringe 50 ml 25 GM/50 ML SYRINGE IV PUSH PRN (11:17)
[2020-07-29] MEDS: Enoxaparin 30 MG/0.3 ML SYR SUBCUT SCH (15:22)
[2020-07-29] MEDS: CMC:Cyclosporine 0.05% OPHTH (NF) 0.4 ML VIAL BOTH EYES SCH (20:47)
[2020-07-29] MEDS: Insulin GLARGINE 100 un/ml 10 ml VIAL SUBCUT SCH (20:55)
[2020-07-30 04:33] LABS: ABS Basophils 0.1 10^3/ul (0-0.2); ABS Eosinophils 0.4 10^3/ul (0-0.6); ABS Lymphocytes 1.7 10^3/ul (1.0-4.8); ABS Neutrophils 7.3 10^3/ul (1.5-7.7); Eosinophil % 3.4 %; Hematocrit 25 % (35-47); Hemoglobin 8.3 g/dL (12.0-16.0); Lymphocyte % 15.9 %; Mean Corpuscular HGB Conc 34 g/dL (31-36); Mean Corpuscular Hemoglobin 32 pg (27-31); Mean Corpuscular Volume 96 fL (80-97); Mean Platelet Volume 8.3 fL (7.4-10.4); Nucleated Red Blood Cells % 0.1; Platelet Count 301 10^3/uL (150-450); Red Blood Count 2.56 10^6 /uL (3.70-4.87); Red Cell Distribution Width 15 % (10-15); White Blood Count 10.4 10^3/uL (3.5-10.8)
[2020-07-30 04:50] LABS: BUN/Creatinine Ratio 33.9 (8-20); Calcium 7.7 mg/dL (8.6-10.3); EGFR African American 123.9 (>60); EGFR Non-African American 102.4 (>60); Total Bilirubin 0.8 mg/dL (0.2-1.0)
[2020-07-30] MEDS: CMC:Cyclosporine 0.05% OPHTH (NF) 0.4 ML VIAL BOTH EYES SCH ×2 (08:56→21:11)
[2020-07-30] MEDS: Enoxaparin 30 MG/0.3 ML SYR SUBCUT SCH (12:50)
[2020-07-30] MEDS: Benzocaine (DENTAL) 10% TOP.GEL TOPICAL PRN (20:57)
[2020-07-30] MEDS: Insulin GLARGINE 100 un/ml 10 ml VIAL SUBCUT SCH (21:10)
[2020-07-31] MEDS: CMC:Cyclosporine 0.05% OPHTH (NF) 0.4 ML VIAL BOTH EYES SCH ×2 (08:27→21:42)
[2020-07-31] MEDS: Enoxaparin 30 MG/0.3 ML SYR SUBCUT SCH (12:29)
[2020-07-31] MEDS: Insulin GLARGINE 100 un/ml 10 ml VIAL SUBCUT SCH (21:42)
[2020-08-01] MEDS: CMC:Cyclosporine 0.05% OPHTH (NF) 0.4 ML VIAL BOTH EYES SCH ×2 (09:52→20:06)
[2020-08-01] MEDS: Enoxaparin 30 MG/0.3 ML SYR SUBCUT SCH (11:22)
[2020-08-01] MEDS: Benzocaine (DENTAL) 10% TOP.GEL TOPICAL PRN (12:46)
[2020-08-01] MEDS ORDERED: Lidocaine 2% JELLY 6 ML TOPICAL ONE (18:00)
[2020-08-01 18:56] LABS: Urine Appearance Clear; Urine Bilirubin Negative (Negative); Urine Blood Negative (Negative); Urine Color Amber; Urine Glucose Negative (Negative); Urine Ketones Trace (Negative); Urine Nitrite Negative (Negative); Urine Protein Negative (Negative); Urine Urobilinogen Negative (Negative)
[2020-08-01 19:13] LABS: Urine Bacteria 1+ (Absent); Urine Red Blood Cell Trace(0-2/hpf) (Absent); Urine Squamous Epithelial Cell Present (Absent); Urine White Blood Cell 3+(>20/hpf) (Absent)
[2020-08-01] MEDS: Insulin GLARGINE 100 un/ml 10 ml VIAL SUBCUT SCH (20:39)
[2020-08-02] MEDS: Benzocaine (DENTAL) 10% TOP.GEL TOPICAL PRN (07:32)
[2020-08-02] MEDS: CMC:Cyclosporine 0.05% OPHTH (NF) 0.4 ML VIAL BOTH EYES SCH ×2 (07:32→20:23)
[2020-08-02] MEDS: Enoxaparin 30 MG/0.3 ML SYR SUBCUT SCH (07:33)
[2020-08-02] MEDS: Insulin GLARGINE 100 un/ml 10 ml VIAL SUBCUT SCH (20:22)
[2020-08-03] MEDS: Enoxaparin 30 MG/0.3 ML SYR SUBCUT SCH (09:08)
[2020-08-03] MEDS: CMC:Cyclosporine 0.05% OPHTH (NF) 0.4 ML VIAL BOTH EYES SCH ×2 (09:11→19:58)
[2020-08-03] MEDS: Benzocaine (DENTAL) 10% TOP.GEL TOPICAL PRN (19:54)
[2020-08-03] MEDS: Insulin GLARGINE 100 un/ml 10 ml VIAL SUBCUT SCH (21:26)
[2020-08-04] MEDS: Enoxaparin 30 MG/0.3 ML SYR SUBCUT SCH (07:40)
[2020-08-04] MEDS: CMC:Cyclosporine 0.05% OPHTH (NF) 0.4 ML VIAL BOTH EYES SCH ×2 (09:50→20:24)
[2020-08-04] MEDS ORDERED: Benzocaine/Menthol LOZ PO PRN (19:53)
[2020-08-04] MEDS: Insulin GLARGINE 100 un/ml 10 ml VIAL SUBCUT SCH (22:00)
[2020-08-05] MEDS: CMC:Cyclosporine 0.05% OPHTH (NF) 0.4 ML VIAL BOTH EYES SCH ×2 (08:28→20:47)
[2020-08-05] MEDS: Enoxaparin 30 MG/0.3 ML SYR SUBCUT SCH (08:28)
[2020-08-05 09:52] LABS: ABS Basophils 0.1 10^3/ul (0-0.2); ABS Eosinophils 0.3 10^3/ul (0-0.6); ABS Lymphocytes 1.7 10^3/ul (1.0-4.8); ABS Monocytes 0.8 10^3/ul (0-0.8); ABS Neutrophils 6.3 10^3/ul (1.5-7.7); Eosinophil % 3.2 %; Hematocrit 27 % (35-47); Hemoglobin 8.9 g/dL (12.0-16.0); Lymphocyte % 18.3 %; Mean Corpuscular HGB Conc 33 g/dL (31-36); Mean Corpuscular Hemoglobin 33 pg (27-31); Mean Corpuscular Volume 99 fL (80-97); Platelet Count 479 10^3/uL (150-450); Red Blood Count 2.71 10^6 /uL (3.70-4.87); Red Cell Distribution Width 16 % (10-15); White Blood Count 9.2 10^3/uL (3.5-10.8)
[2020-08-05 10:13] LABS: Albumin 3.1 g/dL (3.2-5.2); Albumin/Globulin Ratio 0.9 (1-3); BUN/Creatinine Ratio 23.3 (8-20); Calcium 8.6 mg/dL (8.6-10.3); EGFR African American 114.4 (>60); EGFR Non-African American 94.6 (>60); Globulin 3.4 g/dL (2-4); Total Bilirubin 0.8 mg/dL (0.2-1.0); Total Protein 6.5 g/dL (6.4-8.9)
[2020-08-05] MEDS: Insulin GLARGINE 100 un/ml 10 ml VIAL SUBCUT SCH (21:21)
[2020-08-06] MEDS: Enoxaparin 30 MG/0.3 ML SYR SUBCUT SCH (09:20)
[2020-08-06] MEDS: CMC:Cyclosporine 0.05% OPHTH (NF) 0.4 ML VIAL BOTH EYES SCH ×2 (09:20→20:47)
[2020-08-06] MEDS: Insulin GLARGINE 100 un/ml 10 ml VIAL SUBCUT SCH (20:48)
[2020-08-07] MEDS: Enoxaparin 30 MG/0.3 ML SYR SUBCUT SCH (10:04)
[2020-08-07] MEDS: CMC:Cyclosporine 0.05% OPHTH (NF) 0.4 ML VIAL BOTH EYES SCH ×2 (10:05→20:32)
[2020-08-07] MEDS: Insulin GLARGINE 100 un/ml 10 ml VIAL SUBCUT SCH (20:51)
[2020-08-08] MEDS: Enoxaparin 30 MG/0.3 ML SYR SUBCUT SCH (07:37)
[2020-08-08] MEDS: CMC:Cyclosporine 0.05% OPHTH (NF) 0.4 ML VIAL BOTH EYES SCH ×2 (09:47→21:31)
[2020-08-08] MEDS: Insulin GLARGINE 100 un/ml 10 ml VIAL SUBCUT SCH (21:37)
[2020-08-09] MEDS: CMC:Cyclosporine 0.05% OPHTH (NF) 0.4 ML VIAL BOTH EYES SCH ×2 (08:28→20:19)
[2020-08-09] MEDS: Enoxaparin 30 MG/0.3 ML SYR SUBCUT SCH (09:21)
[2020-08-09] MEDS: Insulin GLARGINE 100 un/ml 10 ml VIAL SUBCUT SCH (22:05)
[2020-08-10] MEDS: Enoxaparin 30 MG/0.3 ML SYR SUBCUT SCH (09:37)
[2020-08-10] MEDS: CMC:Cyclosporine 0.05% OPHTH (NF) 0.4 ML VIAL BOTH EYES SCH ×2 (12:16→20:40)
[2020-08-10] MEDS: Insulin GLARGINE 100 un/ml 10 ml VIAL SUBCUT SCH (20:40)
[2020-08-11] MEDS: Enoxaparin 30 MG/0.3 ML SYR SUBCUT SCH (09:42)
[2020-08-11] MEDS: CMC:Cyclosporine 0.05% OPHTH (NF) 0.4 ML VIAL BOTH EYES SCH ×2 (09:44→20:51)
[2020-08-11] MEDS: Insulin GLARGINE 100 un/ml 10 ml VIAL SUBCUT SCH (20:51)
[2020-08-12 06:34] LABS: ABS Basophils 0.1 10^3/ul (0-0.2); ABS Eosinophils 0.2 10^3/ul (0-0.6); ABS Lymphocytes 1.4 10^3/ul (1.0-4.8); ABS Monocytes 0.8 10^3/ul (0-0.8); ABS Neutrophils 5.6 10^3/ul (1.5-7.7); Eosinophil % 2.7 %; Hematocrit 27 % (35-47); Hemoglobin 9.1 g/dL (12.0-16.0); Lymphocyte % 17.4 %; Mean Corpuscular HGB Conc 33 g/dL (31-36); Mean Corpuscular Hemoglobin 33 pg (27-31); Mean Corpuscular Volume 99 fL (80-97); Platelet Count 394 10^3/uL (150-450); Red Blood Count 2.79 10^6 /uL (3.70-4.87); Red Cell Distribution Width 17 % (10-15); White Blood Count 8.1 10^3/uL (3.5-10.8)
[2020-08-12 06:57] LABS: Albumin 3.3 g/dL (3.2-5.2); Albumin/Globulin Ratio 0.9 (1-3); BUN/Creatinine Ratio 26.3 (8-20); Calcium 8.5 mg/dL (8.6-10.3); EGFR African American 121.4 (>60); EGFR Non-African American 100.3 (>60); Globulin 3.5 g/dL (2-4); Potassium 3.6 mmol/L (3.5-5.0); Total Bilirubin 0.7 mg/dL (0.2-1.0); Total Protein 6.8 g/dL (6.4-8.9)
[2020-08-12] MEDS: CMC:Cyclosporine 0.05% OPHTH (NF) 0.4 ML VIAL BOTH EYES SCH ×2 (09:18→20:47)
[2020-08-12] MEDS: Enoxaparin 30 MG/0.3 ML SYR SUBCUT SCH (09:35)
[2020-08-12] MEDS: Insulin GLARGINE 100 un/ml 10 ml VIAL SUBCUT SCH (20:47)
[2020-08-13] MEDS: Enoxaparin 30 MG/0.3 ML SYR SUBCUT SCH (08:25)
[2020-08-13] MEDS: CMC:Cyclosporine 0.05% OPHTH (NF) 0.4 ML VIAL BOTH EYES SCH ×2 (08:26→21:19)
[2020-08-13 16:12] LABS: Urine Appearance Turbid; Urine Bilirubin Negative (Negative); Urine Blood 2+ (Negative); Urine Color Yellow; Urine Glucose Negative (Negative); Urine Ketones Negative (Negative); Urine Nitrite Positive (Negative); Urine Protein 2+(100 mg/dL) (Negative); Urine Specific Gravity 1.019 (1.010-1.030); Urine Urobilinogen Negative (Negative)
[2020-08-13 16:18] LABS: Urine Bacteria Absent (Absent); Urine Red Blood Cell 3+(>10/hpf) (Absent); Urine Squamous Epithelial Cell Present (Absent); Urine White Blood Cell 3+(>20/hpf) (Absent)
[2020-08-14 00:47] LABS: Urine Appearance Cloudy; Urine Bilirubin Negative (Negative); Urine Blood 1+ (Negative); Urine Color Yellow; Urine Glucose Negative (Negative); Urine Ketones Negative (Negative); Urine Nitrite Positive (Negative); Urine Protein 1+(30 mg/dL) (Negative); Urine Specific Gravity 1.012 (1.010-1.030); Urine Urobilinogen Negative (Negative)
[2020-08-14 00:51] LABS: Urine Bacteria 1+ (Absent); Urine Red Blood Cell 1+(3-5/hpf) (Absent); Urine White Blood Cell 3+(>20/hpf) (Absent)
[2020-08-14] MEDS: Enoxaparin 30 MG/0.3 ML SYR SUBCUT SCH (09:16)
[2020-08-14] MEDS: CMC:Cyclosporine 0.05% OPHTH (NF) 0.4 ML VIAL BOTH EYES SCH ×2 (09:34→21:33)
[2020-08-15] MEDS: CMC:Cyclosporine 0.05% OPHTH (NF) 0.4 ML VIAL BOTH EYES SCH ×2 (09:47→20:15)
[2020-08-15] MEDS: Enoxaparin 30 MG/0.3 ML SYR SUBCUT SCH (09:48)
[2020-08-16] MEDS: Enoxaparin 30 MG/0.3 ML SYR SUBCUT SCH (09:25)
[2020-08-16] MEDS: CMC:Cyclosporine 0.05% OPHTH (NF) 0.4 ML VIAL BOTH EYES SCH ×2 (09:32→21:03)
[2020-08-17] MEDS: Enoxaparin 30 MG/0.3 ML SYR SUBCUT SCH (09:49)
[2020-08-17] MEDS: CMC:Cyclosporine 0.05% OPHTH (NF) 0.4 ML VIAL BOTH EYES SCH ×2 (09:52→20:08)
[2020-08-18] MEDS: Enoxaparin 30 MG/0.3 ML SYR SUBCUT SCH (08:40)
[2020-08-18] MEDS: CMC:Cyclosporine 0.05% OPHTH (NF) 0.4 ML VIAL BOTH EYES SCH ×2 (09:55→20:51)
[2020-08-19 05:56] LABS: ABS Eosinophils 0.4 10^3/ul (0-0.6); ABS Lymphocytes 1.5 10^3/ul (1.0-4.8); ABS Monocytes 0.6 10^3/ul (0-0.8); ABS Neutrophils 2.3 10^3/ul (1.5-7.7); Eosinophil % 7.6 %; Hematocrit 29 % (35-47); Hemoglobin 9.5 g/dL (12.0-16.0); Lymphocyte % 30.5 %; Mean Corpuscular HGB Conc 33 g/dL (31-36); Mean Corpuscular Hemoglobin 32 pg (27-31); Mean Corpuscular Volume 98 fL (80-97); Mean Platelet Volume 7.6 fL (7.4-10.4); Platelet Count 400 10^3/uL (150-450); Red Blood Count 2.97 10^6 /uL (3.70-4.87); Red Cell Distribution Width 17 % (10-15); White Blood Count 4.9 10^3/uL (3.5-10.8)
[2020-08-19 06:12] LABS: Albumin 3.4 g/dL (3.2-5.2); BUN/Creatinine Ratio 26.9 (8-20); Calcium 8.6 mg/dL (8.6-10.3); EGFR African American 84.5 (>60); EGFR Non-African American 69.9 (>60); Globulin 3.4 g/dL (2-4); Potassium 3.9 mmol/L (3.5-5.0); Total Bilirubin 0.5 mg/dL (0.2-1.0); Total Protein 6.8 g/dL (6.4-8.9)
[2020-08-19] MEDS: Enoxaparin 30 MG/0.3 ML SYR SUBCUT SCH (08:28)
[2020-08-19] MEDS: CMC:Cyclosporine 0.05% OPHTH (NF) 0.4 ML VIAL BOTH EYES SCH ×2 (08:29→20:05)
[2020-08-20] MEDS: Enoxaparin 30 MG/0.3 ML SYR SUBCUT SCH (09:45)
[2020-08-20] MEDS: CMC:Cyclosporine 0.05% OPHTH (NF) 0.4 ML VIAL BOTH EYES SCH ×2 (09:45→20:46)
[2020-08-21] MEDS: CMC:Cyclosporine 0.05% OPHTH (NF) 0.4 ML VIAL BOTH EYES SCH ×2 (09:09→19:04)
[2020-08-21] MEDS: Enoxaparin 30 MG/0.3 ML SYR SUBCUT SCH (09:12)
[2020-08-22] MEDS: CMC:Cyclosporine 0.05% OPHTH (NF) 0.4 ML VIAL BOTH EYES SCH ×2 (08:49→20:23)
[2020-08-22] MEDS: Enoxaparin 30 MG/0.3 ML SYR SUBCUT SCH (08:50)
[2020-08-23] MEDS: CMC:Cyclosporine 0.05% OPHTH (NF) 0.4 ML VIAL BOTH EYES SCH ×2 (08:27→21:04)
[2020-08-23] MEDS: Enoxaparin 30 MG/0.3 ML SYR SUBCUT SCH (08:27)
[2020-08-24 03:46] VITALS: BP 122/37
[2020-08-24] MEDS: Enoxaparin 30 MG/0.3 ML SYR SUBCUT SCH (08:29)
[2020-08-24] MEDS: CMC:Cyclosporine 0.05% OPHTH (NF) 0.4 ML VIAL BOTH EYES SCH (08:30)
== END 2020-08-24 13:05 | disposition home health service (06) | DRG 560 ==
LOC: PMRU 11:02
PROVIDERS: ADMIT Physical Medicine & Rehabilitation; ATTEND Physical Medicine & Rehabilitation

== ENCOUNTER 2021-05-29 18:34 | Inpatient (IN) ==
[2021-05-29] MEDS ORDERED: HYDROcodone/ACETAMIN 5/325 mg TAB PO ONE (22:53)
[2021-05-29 23:50] LABS: Hematocrit 37 % (35-47); Hemoglobin 12.4 g/dL (12.0-16.0); Mean Corpuscular HGB Conc 34 g/dL (31-36); Mean Corpuscular Hemoglobin 32 pg (27-31); Mean Corpuscular Volume 96 fL (80-97); Mean Platelet Volume 8.5 fL (7.4-10.4); Platelet Count 398 10^3/uL (150-450); Red Blood Count 3.83 10^6 /uL (3.70-4.87); Red Cell Distribution Width 15 % (10-15); White Blood Count 12.4 10^3/uL (3.5-10.8)
[2021-05-30 00:06] LABS: Rapid COVID-19 Molecular Undetected (Undetected)
[2021-05-30 00:10] LABS: ALT 5 U/L (7-52); Albumin 3.6 g/dL (3.2-5.2); Alkaline Phosphatase 82 U/L (35-149); Blood Urea Nitrogen 27 mg/dL (6-24); CO2 Carbon Dioxide 25 mmol/L (22-32); Calcium 9.1 mg/dL (8.6-10.3); Chloride 99 mmol/L (101-111); Globulin 3.6 g/dL (2-4); Glucose 133 mg/dL (70-100); Sodium 132 mmol/L (135-145); Total Protein 7.2 g/dL (6.4-8.9)
[2021-05-30 00:21] LABS: Anion Gap 8 mmol/L (2-11)
[2021-05-30 00:26] LABS: ABS Basophils 0.1 10^3/ul (0-0.2); ABS Eosinophils 0.2 10^3/ul (0-0.6); ABS Lymphocytes 2.1 10^3/ul (1.0-4.8); ABS Monocytes 1.3 10^3/ul (0-0.8); ABS Neutrophils 8.7 10^3/ul (1.5-7.7); Eosinophil % 1.8 %; Lymphocyte % 17.1 %
[2021-05-30] MEDS ORDERED: Dextrose 50% Syringe 50 ml 25 GM/50 ML SYRINGE IV PUSH PRN (02:01)
[2021-05-30] MEDS: Enoxaparin 30 MG/0.3 ML SYR SUBCUT SCH (02:12)
[2021-05-30 05:59] LABS: ABS Eosinophils 0.2 10^3/ul (0-0.6); ABS Lymphocytes 1.7 10^3/ul (1.0-4.8); ABS Monocytes 0.9 10^3/ul (0-0.8); ABS Neutrophils 7.4 10^3/ul (1.5-7.7); Eosinophil % 1.7 %; Hematocrit 37 % (35-47); Hemoglobin 12.4 g/dL (12.0-16.0); Lymphocyte % 16.8 %; Mean Corpuscular HGB Conc 33 g/dL (31-36); Mean Corpuscular Hemoglobin 32 pg (27-31); Mean Corpuscular Volume 96 fL (80-97); Mean Platelet Volume 8.3 fL (7.4-10.4); Platelet Count 391 10^3/uL (150-450); Red Blood Count 3.88 10^6 /uL (3.70-4.87); Red Cell Distribution Width 15 % (10-15); White Blood Count 10.3 10^3/uL (3.5-10.8)
[2021-05-30 06:16] LABS: Calcium 9.1 mg/dL (8.6-10.3); Potassium 3.9 mmol/L (3.5-5.0)
[2021-05-30] MEDS: Aspirin EC 81 mg TAB.EC (enteric coated) PO SCH (08:49)
[2021-05-30] MEDS: Insulin GLARGINE 100 un/ml 10 ml VIAL SUBCUT SCH (08:58)
[2021-05-30] MEDS ORDERED: Insulin GLARGINE 100 un/ml 10 ml VIAL SUBCUT SCH (09:00)
[2021-05-30] MEDS ORDERED: HYDROcodone/ACETAMIN 5/325 mg TAB PO PRN (13:11)
[2021-05-30] MEDS: oxyCODONE/Acetamin 5/325 mg TAB PO PRN ×2 (17:34→23:42)
[2021-05-31] MEDS: Enoxaparin 30 MG/0.3 ML SYR SUBCUT SCH (01:46)
[2021-05-31 07:06] LABS: Urine Appearance Cloudy; Urine Bilirubin Negative (Negative); Urine Blood 2+ (Negative); Urine Color Yellow; Urine Glucose 1+(50 mg/dL) (Negative); Urine Ketones Trace (Negative); Urine Nitrite Negative (Negative); Urine Protein 2+(100 mg/dL) (Negative); Urine Specific Gravity 1.021 (1.002-1.030); Urine Urobilinogen Negative (Negative)
[2021-05-31 07:10] LABS: Urine Bacteria Absent (Absent); Urine Red Blood Cell 3+(>10/hpf) (Absent); Urine Squamous Epithelial Cell Present (Absent); Urine White Blood Cell 3+(>20/hpf) (Absent)
[2021-05-31] MEDS ORDERED: Ondansetron 4 mg VIAL 2 MG/ML 2 ml VIAL IV PRN (08:07)
[2021-05-31] MEDS ORDERED: Senna TAB 8.6 mg TAB PO PRN (08:21)
[2021-05-31] MEDS ORDERED: Magnesium Hydroxide LIQ 30 ML UDC PO PRN (08:21)
[2021-05-31] MEDS: Insulin GLARGINE 100 un/ml 10 ml VIAL SUBCUT SCH (08:31)
[2021-05-31] MEDS: Aspirin EC 81 mg TAB.EC (enteric coated) PO SCH (08:31)
[2021-05-31] MEDS: Nystatin TOP POWDER 15 GM BTL TOPICAL SCH ×2 (08:37→22:40)
[2021-05-31] MEDS: Polyethylene Glycol 3350 17 GM PACKET PO SCH (09:09)
[2021-05-31] MEDS: oxyCODONE/Acetamin 5/325 mg TAB PO PRN (13:06)
[2021-05-31] MEDS ORDERED: NS 0.9% 1000 ml BAG 1,000 ML IV SCH (16:15)
[2021-05-31] MEDS ORDERED: CMCS: Cyclosporine 0.05% OPHTH (NF) 0.4 ML VIAL BOTH EYES SCH (18:00)
[2021-05-31] MEDS: CMCS: Cyclosporine 0.05% OPHTH (NF) 0.4 ML VIAL BOTH EYES SCH (22:39)
[2021-06-01] MEDS: Enoxaparin 30 MG/0.3 ML SYR SUBCUT SCH (01:18)
[2021-06-01] MEDS: oxyCODONE/Acetamin 5/325 mg TAB PO PRN ×2 (09:58→20:53)
[2021-06-01] MEDS: Polyethylene Glycol 3350 17 GM PACKET PO SCH (09:58)
[2021-06-01] MEDS: Aspirin EC 81 mg TAB.EC (enteric coated) PO SCH (09:58)
[2021-06-01] MEDS: Insulin GLARGINE 100 un/ml 10 ml VIAL SUBCUT SCH (09:59)
[2021-06-01] MEDS: CMCS: Cyclosporine 0.05% OPHTH (NF) 0.4 ML VIAL BOTH EYES SCH ×2 (10:09→20:49)
[2021-06-01] MEDS: Nystatin TOP POWDER 15 GM BTL TOPICAL SCH ×2 (10:09→20:53)
[2021-06-02] MEDS: Enoxaparin 30 MG/0.3 ML SYR SUBCUT SCH (03:11)
[2021-06-02] MEDS: oxyCODONE/Acetamin 5/325 mg TAB PO PRN ×3 (08:51→22:31)
[2021-06-02] MEDS: Aspirin EC 81 mg TAB.EC (enteric coated) PO SCH (08:51)
[2021-06-02] MEDS: Insulin GLARGINE 100 un/ml 10 ml VIAL SUBCUT SCH (08:53)
[2021-06-02] MEDS: Nystatin TOP POWDER 15 GM BTL TOPICAL SCH ×2 (08:53→21:01)
[2021-06-02] MEDS: CMCS: Cyclosporine 0.05% OPHTH (NF) 0.4 ML VIAL BOTH EYES SCH ×2 (08:54→20:56)
[2021-06-02] MEDS: Polyethylene Glycol 3350 17 GM PACKET PO SCH (08:57)
[2021-06-03] MEDS: oxyCODONE/Acetamin 5/325 mg TAB PO PRN ×3 (01:15→14:37)
[2021-06-03] MEDS: Enoxaparin 30 MG/0.3 ML SYR SUBCUT SCH (01:15)
[2021-06-03] MEDS: Polyethylene Glycol 3350 17 GM PACKET PO SCH (07:55)
[2021-06-03] MEDS: CMCS: Cyclosporine 0.05% OPHTH (NF) 0.4 ML VIAL BOTH EYES SCH ×2 (09:27→21:57)
[2021-06-03] MEDS: Insulin GLARGINE 100 un/ml 10 ml VIAL SUBCUT SCH (09:28)
[2021-06-03] MEDS: Aspirin EC 81 mg TAB.EC (enteric coated) PO SCH (09:28)
[2021-06-03] MEDS: Nystatin TOP POWDER 15 GM BTL TOPICAL SCH ×3 (09:30→22:01)
[2021-06-04] MEDS: Enoxaparin 30 MG/0.3 ML SYR SUBCUT SCH ×2 (03:05→12:10)
[2021-06-04] MEDS: Polyethylene Glycol 3350 17 GM PACKET PO SCH (07:19)
[2021-06-04] MEDS: Insulin GLARGINE 100 un/ml 10 ml VIAL SUBCUT SCH (10:01)
[2021-06-04] MEDS: oxyCODONE/Acetamin 5/325 mg TAB PO PRN (10:02)
[2021-06-04] MEDS: Aspirin EC 81 mg TAB.EC (enteric coated) PO SCH (10:03)
[2021-06-04] MEDS: CMCS: Cyclosporine 0.05% OPHTH (NF) 0.4 ML VIAL BOTH EYES SCH ×2 (10:03→20:28)
[2021-06-04] MEDS: Nystatin TOP POWDER 15 GM BTL TOPICAL SCH ×2 (10:05→20:29)
[2021-06-05] MEDS: Insulin GLARGINE 100 un/ml 10 ml VIAL SUBCUT SCH (09:11)
[2021-06-05] MEDS: Aspirin EC 81 mg TAB.EC (enteric coated) PO SCH (09:12)
[2021-06-05] MEDS: Polyethylene Glycol 3350 17 GM PACKET PO SCH (09:14)
[2021-06-05] MEDS: Nystatin TOP POWDER 15 GM BTL TOPICAL SCH ×2 (09:18→19:48)
[2021-06-05] MEDS: CMCS: Cyclosporine 0.05% OPHTH (NF) 0.4 ML VIAL BOTH EYES SCH ×2 (09:18→19:45)
[2021-06-05] MEDS: Enoxaparin 30 MG/0.3 ML SYR SUBCUT SCH (12:49)
[2021-06-05] MEDS: oxyCODONE/Acetamin 5/325 mg TAB PO PRN (12:55)
[2021-06-05] MEDS ORDERED: Gadoteridol (CONTRAST) 279.3 MG/ML 10 ML IV ONE (20:54)
[2021-06-06 07:28] LABS: ABS Basophils 0.1 10^3/ul (0-0.2); ABS Eosinophils 0.2 10^3/ul (0-0.6); ABS Lymphocytes 1.3 10^3/ul (1.0-4.8); ABS Monocytes 0.7 10^3/ul (0-0.8); Eosinophil % 2.2 %; Hematocrit 38 % (35-47); Hemoglobin 12.4 g/dL (12.0-16.0); Lymphocyte % 15.4 %; Mean Corpuscular HGB Conc 33 g/dL (31-36); Mean Corpuscular Hemoglobin 32 pg (27-31); Mean Corpuscular Volume 97 fL (80-97); Mean Platelet Volume 8.3 fL (7.4-10.4); Platelet Count 394 10^3/uL (150-450); Red Blood Count 3.88 10^6 /uL (3.70-4.87); Red Cell Distribution Width 15 % (10-15); White Blood Count 8.2 10^3/uL (3.5-10.8)
[2021-06-06 07:38] LABS: Calcium 8.8 mg/dL (8.6-10.3); Magnesium 1.9 mg/dL (1.9-2.7); Potassium 3.9 mmol/L (3.5-5.0); eGFR CKD-EPI 85.3 (>60)
[2021-06-06] MEDS: Aspirin EC 81 mg TAB.EC (enteric coated) PO SCH (08:52)
[2021-06-06] MEDS: CMCS: Cyclosporine 0.05% OPHTH (NF) 0.4 ML VIAL BOTH EYES SCH ×2 (08:53→20:20)
[2021-06-06] MEDS: Nystatin TOP POWDER 15 GM BTL TOPICAL SCH ×2 (08:53→20:22)
[2021-06-06] MEDS: Insulin GLARGINE 100 un/ml 10 ml VIAL SUBCUT SCH (08:54)
[2021-06-06] MEDS: Polyethylene Glycol 3350 17 GM PACKET PO SCH (09:00)
[2021-06-06] MEDS: Enoxaparin 30 MG/0.3 ML SYR SUBCUT SCH (11:53)
[2021-06-06] MEDS ORDERED: COVID-19 VACCINE, MRNA(MODERNA) BOOSTER/PF 50 MCG/0.25 ML IM ONE (15:54)
[2021-06-06] MEDS ORDERED: Flu vaccine *QUAD* 2021-22* 0.5 ML SYRINGE IM ONE (15:54)
[2021-06-06 16:58] LABS: Rapid COVID-19 Molecular Undetected (Undetected)
[2021-06-06] MEDS ORDERED: NS 0.9% 500 ml BAG 500 ML IV SCH (18:00)
[2021-06-07] MEDS: Insulin GLARGINE 100 un/ml 10 ml VIAL SUBCUT SCH (09:51)
[2021-06-07] MEDS: Aspirin EC 81 mg TAB.EC (enteric coated) PO SCH (09:52)
[2021-06-07] MEDS: Polyethylene Glycol 3350 17 GM PACKET PO SCH (09:53)
[2021-06-07] MEDS: CMCS: Cyclosporine 0.05% OPHTH (NF) 0.4 ML VIAL BOTH EYES SCH (09:53)
[2021-06-07 10:43] VITALS: BP 140/48
[2021-06-07] MEDS: Enoxaparin 30 MG/0.3 ML SYR SUBCUT SCH (11:44)
[2021-06-07] MEDS: Nystatin TOP POWDER 15 GM BTL TOPICAL SCH ×2 (11:50→12:17)
[2021-06-07] MEDS: oxyCODONE/Acetamin 5/325 mg TAB PO PRN (12:05)
== END 2021-06-07 14:00 | DRG 552 ==
LOC: ED 18:34 → EDHOLD 18:34 → SUATTDRO 05-30 00:51 → SSU 05-30 03:51 → SUATTDRO 06-01 16:00
PROVIDERS: ADMIT Student in an Organized Health Care Education/Training Program; ATTEND Internal Medicine

== ENCOUNTER 2021-07-02 11:34 | Inpatient (IN) ==
[2021-07-02 13:05] LABS: ABS Eosinophils 0.1 10^3/ul (0-0.6); ABS Lymphocytes 0.9 10^3/ul (1.0-4.8); ABS Monocytes 1.2 10^3/ul (0-0.8); ABS Neutrophils 10.2 10^3/ul (1.5-7.7); Eosinophil % 0.6 %; Hematocrit 41 % (35-47); Hemoglobin 13.7 g/dL (12.0-16.0); Lymphocyte % 7.3 %; Mean Corpuscular HGB Conc 34 g/dL (31-36); Mean Corpuscular Hemoglobin 32 pg (27-31); Mean Corpuscular Volume 96 fL (80-97); Mean Platelet Volume 7.8 fL (7.4-10.4); Platelet Count 415 10^3/uL (150-450); Red Blood Count 4.26 10^6 /uL (3.70-4.87); Red Cell Distribution Width 15 % (10-15); White Blood Count 12.3 10^3/uL (3.5-10.8)
[2021-07-02] MEDS ORDERED: NS 0.9% 1000 ml BAG 1,000 ML IV SCH (13:15)
[2021-07-02 13:22] LABS: Albumin 3.5 g/dL (3.2-5.2); Albumin/Globulin Ratio 0.9 (1-3); Calcium 8.8 mg/dL (8.6-10.3); Globulin 3.8 g/dL (2-4); Magnesium 1.6 mg/dL (1.9-2.7); Potassium 3.9 mmol/L (3.5-5.0); Total Bilirubin 0.4 mg/dL (0.2-1.0); Total Protein 7.3 g/dL (6.4-8.9); eGFR CKD-EPI 76.5 (>60)
[2021-07-02 13:25] LABS: Troponin I 0.01 ng/mL (<0.03)
[2021-07-02] MEDS ORDERED: Magnesium Sulfate 2 gm BAG 2 GM/50 ML BAG IVPB ONE (13:31)
[2021-07-02 14:07] LABS: Urine Appearance Turbid; Urine Bilirubin Negative (Negative); Urine Blood 2+ (Negative); Urine Color Yellow; Urine Glucose Negative (Negative); Urine Ketones Negative (Negative); Urine Nitrite Positive (Negative); Urine Protein 1+(30 mg/dL) (Negative); Urine Urobilinogen Negative (Negative)
[2021-07-02 14:11] LABS: Urine Bacteria 3+ (Absent); Urine Red Blood Cell 3+(>10/hpf) (Absent); Urine Squamous Epithelial Cell Present (Absent); Urine White Blood Cell 3+(>20/hpf) (Absent)
[2021-07-02] MEDS ORDERED: cefTRIAXone 1 gm/50 mL NS BAG 1 GM/50 ML BAG IV ONE (14:11)
[2021-07-02] MEDS ORDERED: Ondansetron 4 mg VIAL 2 MG/ML 2 ml VIAL IV PRN (14:41)
[2021-07-02] MEDS ORDERED: oxyCODONE/Acetamin 5/325 mg TAB PO PRN (15:41)
[2021-07-02] MEDS ORDERED: Morphine 2 MG/ML SYRINGE IV PRN (15:42)
[2021-07-02] MEDS ORDERED: CMC:Cyclosporine 0.05% OPHTH (NF) 0.4 ML VIAL BOTH EYES SCH (16:00)
[2021-07-02] MEDS: Enoxaparin 40 MG/0.4 ML SYR SUBCUT SCH (16:46)
[2021-07-02 19:34] LABS: TSH Ultra Thyroid Stim Horm 1.61 mcIU/mL (0.34-5.60)
[2021-07-03] MEDS: Nystatin TOP POWDER 15 GM BTL TOPICAL SCH ×4 (02:23→22:02)
[2021-07-03 05:59] LABS: Calcium 8.3 mg/dL (8.6-10.3); Magnesium 1.9 mg/dL (1.9-2.7); Potassium 4.2 mmol/L (3.5-5.0)
[2021-07-03 06:05] LABS: eGFR CKD-EPI 83.7 (>60)
[2021-07-03 08:00] LABS: ABS Eosinophils 0.1 10^3/ul (0-0.6); ABS Lymphocytes 1.1 10^3/ul (1.0-4.8); ABS Monocytes 0.7 10^3/ul (0-0.8); ABS Neutrophils 6.8 10^3/ul (1.5-7.7); Hematocrit 38 % (35-47); Hemoglobin 12.5 g/dL (12.0-16.0); Lymphocyte % 12.6 %; Mean Corpuscular HGB Conc 33 g/dL (31-36); Mean Corpuscular Hemoglobin 32 pg (27-31); Mean Corpuscular Volume 97 fL (80-97); Mean Platelet Volume 7.8 fL (7.4-10.4); Platelet Count 374 10^3/uL (150-450); Red Blood Count 3.89 10^6 /uL (3.70-4.87); Red Cell Distribution Width 14 % (10-15); White Blood Count 8.7 10^3/uL (3.5-10.8)
[2021-07-03] MEDS ORDERED: Insulin GLARGINE 100 un/ml 10 ml VIAL SUBCUT SCH (09:00)
[2021-07-03] MEDS: oxyCODONE/Acetamin 5/325 mg TAB PO PRN (10:01)
[2021-07-03] MEDS: Aspirin EC 81 mg TAB.EC (enteric coated) PO SCH (10:04)
[2021-07-03] MEDS: Polyethylene Glycol 3350 17 GM PACKET PO SCH (10:26)
[2021-07-03] MEDS: CMC:Cyclosporine 0.05% OPHTH (NF) 0.4 ML VIAL BOTH EYES SCH ×2 (10:34→22:01)
[2021-07-03] MEDS ORDERED: Dextrose 50% Syringe 50 ml 25 GM/50 ML SYRINGE IV PUSH PRN (11:35)
[2021-07-03] MEDS: Enoxaparin 40 MG/0.4 ML SYR SUBCUT SCH (14:00)
[2021-07-03] MEDS: cefTRIAXone 1 gm/50 mL NS BAG 1 GM/50 ML BAG IVPB SCH (16:07)
[2021-07-04 07:05] LABS: ABS Eosinophils 0.2 10^3/ul (0-0.6); ABS Lymphocytes 1.2 10^3/ul (1.0-4.8); ABS Monocytes 0.6 10^3/ul (0-0.8); ABS Neutrophils 7.9 10^3/ul (1.5-7.7); Eosinophil % 1.6 %; Hematocrit 42 % (35-47); Lymphocyte % 12.4 %; Mean Corpuscular HGB Conc 34 g/dL (31-36); Mean Corpuscular Hemoglobin 32 pg (27-31); Mean Corpuscular Volume 96 fL (80-97); Mean Platelet Volume 7.7 fL (7.4-10.4); Nucleated Red Blood Cells % 0.1; Platelet Count 412 10^3/uL (150-450); Red Blood Count 4.35 10^6 /uL (3.70-4.87); Red Cell Distribution Width 14 % (10-15); White Blood Count 9.9 10^3/uL (3.5-10.8)
[2021-07-04 07:23] LABS: Calcium 8.6 mg/dL (8.6-10.3); Potassium 3.8 mmol/L (3.5-5.0); eGFR CKD-EPI 85.9 (>60)
[2021-07-04] MEDS: Polyethylene Glycol 3350 17 GM PACKET PO SCH (09:10)
[2021-07-04] MEDS: Aspirin EC 81 mg TAB.EC (enteric coated) PO SCH (09:10)
[2021-07-04] MEDS: Insulin GLARGINE 100 un/ml 10 ml VIAL SUBCUT SCH (09:11)
[2021-07-04] MEDS: Nystatin TOP POWDER 15 GM BTL TOPICAL SCH ×3 (09:20→20:42)
[2021-07-04] MEDS: CMC:Cyclosporine 0.05% OPHTH (NF) 0.4 ML VIAL BOTH EYES SCH ×2 (09:28→20:43)
[2021-07-04] MEDS: Enoxaparin 40 MG/0.4 ML SYR SUBCUT SCH (14:28)
[2021-07-04] MEDS: cefTRIAXone 1 gm/50 mL NS BAG 1 GM/50 ML BAG IVPB SCH (17:10)
[2021-07-04] MEDS: oxyCODONE/Acetamin 5/325 mg TAB PO PRN (20:49)
[2021-07-05 06:11] LABS: ABS Basophils 0.1 10^3/ul (0-0.2); ABS Eosinophils 0.3 10^3/ul (0-0.6); ABS Lymphocytes 1.5 10^3/ul (1.0-4.8); ABS Monocytes 0.8 10^3/ul (0-0.8); ABS Neutrophils 6.6 10^3/ul (1.5-7.7); Eosinophil % 2.7 %; Hematocrit 37 % (35-47); Hemoglobin 12.5 g/dL (12.0-16.0); Lymphocyte % 16.5 %; Mean Corpuscular HGB Conc 33 g/dL (31-36); Mean Corpuscular Hemoglobin 32 pg (27-31); Mean Corpuscular Volume 96 fL (80-97); Mean Platelet Volume 7.8 fL (7.4-10.4); Platelet Count 362 10^3/uL (150-450); Red Blood Count 3.89 10^6 /uL (3.70-4.87); Red Cell Distribution Width 14 % (10-15); White Blood Count 9.3 10^3/uL (3.5-10.8)
[2021-07-05 06:30] LABS: Calcium 8.3 mg/dL (8.6-10.3); Potassium 4.1 mmol/L (3.5-5.0); eGFR CKD-EPI 85.3 (>60)
[2021-07-05] MEDS: Aspirin EC 81 mg TAB.EC (enteric coated) PO SCH (09:14)
[2021-07-05] MEDS: Polyethylene Glycol 3350 17 GM PACKET PO SCH (09:14)
[2021-07-05] MEDS: Insulin GLARGINE 100 un/ml 10 ml VIAL SUBCUT SCH (09:15)
[2021-07-05] MEDS: oxyCODONE/Acetamin 5/325 mg TAB PO PRN (09:26)
[2021-07-05] MEDS: Nystatin TOP POWDER 15 GM BTL TOPICAL SCH ×3 (09:30→20:48)
[2021-07-05] MEDS: CMC:Cyclosporine 0.05% OPHTH (NF) 0.4 ML VIAL BOTH EYES SCH ×2 (09:31→20:48)
[2021-07-05] MEDS: Enoxaparin 40 MG/0.4 ML SYR SUBCUT SCH (14:48)
[2021-07-05] MEDS: cefTRIAXone 1 gm/50 mL NS BAG 1 GM/50 ML BAG IVPB SCH (16:26)
[2021-07-06 05:37] LABS: ABS Eosinophils 0.3 10^3/ul (0-0.6); ABS Lymphocytes 1.7 10^3/ul (1.0-4.8); ABS Monocytes 0.8 10^3/ul (0-0.8); ABS Neutrophils 5.6 10^3/ul (1.5-7.7); Eosinophil % 3.2 %; Hematocrit 34 % (35-47); Hemoglobin 11.5 g/dL (12.0-16.0); Mean Corpuscular HGB Conc 34 g/dL (31-36); Mean Corpuscular Hemoglobin 32 pg (27-31); Mean Corpuscular Volume 96 fL (80-97); Platelet Count 367 10^3/uL (150-450); Red Blood Count 3.54 10^6 /uL (3.70-4.87); Red Cell Distribution Width 14 % (10-15); White Blood Count 8.3 10^3/uL (3.5-10.8)
[2021-07-06 06:02] LABS: Calcium 8.1 mg/dL (8.6-10.3); Potassium 3.6 mmol/L (3.5-5.0); eGFR CKD-EPI 88.9 (>60)
[2021-07-06] MEDS: Aspirin EC 81 mg TAB.EC (enteric coated) PO SCH (08:32)
[2021-07-06] MEDS: Insulin GLARGINE 100 un/ml 10 ml VIAL SUBCUT SCH (08:42)
[2021-07-06] MEDS: CMC:Cyclosporine 0.05% OPHTH (NF) 0.4 ML VIAL BOTH EYES SCH (08:46)
[2021-07-06] MEDS: Polyethylene Glycol 3350 17 GM PACKET PO SCH (08:47)
[2021-07-06] MEDS: Nystatin TOP POWDER 15 GM BTL TOPICAL SCH (08:47)
[2021-07-06] MEDS ORDERED: Lidocaine PATCH 5% PATCH TRANSDERM SCH (12:00)
[2021-07-06 12:11] VITALS: BP 103/75
[2021-07-06] MEDS ORDERED: Lidocaine Patch REMOVE NOTE PATCH OFF SCH (21:00)
== END 2021-07-06 14:05 | DRG 552 ==
LOC: ED 11:34 → EDHOLD 11:34 → SUATTDRO 15:18 → MED 21:50
PROVIDERS: ADMIT Student in an Organized Health Care Education/Training Program; ATTEND Hospitalist

== ENCOUNTER 2021-07-30 09:52 | Observation (INO) ==
[2021-07-30 11:58] LABS: ABS Lymphocytes 1.1 10^3/ul (1.0-4.8); ABS Monocytes 0.6 10^3/ul (0-0.8); ABS Neutrophils 8.6 10^3/ul (1.5-7.7); Eosinophil % 0.1 %; Hematocrit 40 % (35-47); Hemoglobin 13.3 g/dL (12.0-16.0); Lymphocyte % 10.3 %; Mean Corpuscular HGB Conc 33 g/dL (31-36); Mean Corpuscular Hemoglobin 32 pg (27-31); Mean Corpuscular Volume 96 fL (80-97); Mean Platelet Volume 7.6 fL (7.4-10.4); Platelet Count 402 10^3/uL (150-450); Red Blood Count 4.15 10^6 /uL (3.70-4.87); Red Cell Distribution Width 15 % (10-15); White Blood Count 10.3 10^3/uL (3.5-10.8)
[2021-07-30 12:16] LABS: Albumin 3.3 g/dL (3.2-5.2); Albumin/Globulin Ratio 0.8 (1-3); Calcium 8.5 mg/dL (8.6-10.3); Globulin 4.1 g/dL (2-4); Magnesium 1.6 mg/dL (1.9-2.7); Potassium 4.2 mmol/L (3.5-5.0); Total Bilirubin 0.3 mg/dL (0.2-1.0); Total Protein 7.4 g/dL (6.4-8.9); Troponin I 0.01 ng/mL (<0.03); eGFR CKD-EPI 87.7 (>60)
[2021-07-30 12:33] LABS: Urine Appearance Cloudy; Urine Color Yellow
[2021-07-30 12:34] LABS: Urine Bilirubin Negative (Negative); Urine Blood 1+ (Negative); Urine Glucose 3+(>=500 mg/dL) (Negative); Urine Ketones Negative (Negative); Urine Nitrite Negative (Negative); Urine Protein 1+(30 mg/dL) (Negative); Urine Urobilinogen Negative (Negative); Urine pH 5 (5-9)
[2021-07-30 12:46] LABS: Urine Bacteria 3+ (Absent); Urine Red Blood Cell 3+(>10/hpf) (Absent); Urine White Blood Cell 3+(>20/hpf) (Absent)
[2021-07-30] MEDS ORDERED: cefTRIAXone 1 gm/50 mL NS BAG 1 GM/50 ML BAG IV ONE (13:49)
[2021-07-30] MEDS ORDERED: NS 0.9% 1000 ml BAG 1,000 ML IV SCH (17:15)
[2021-07-30] MEDS ORDERED: Magnesium Sulfate 2 gm BAG 2 GM/50 ML BAG IVPB ONE (17:31)
[2021-07-30] MEDS ORDERED: Lidocaine Patch REMOVE NOTE PATCH OFF SCH (21:00)
[2021-07-31 08:45] LABS: ABS Basophils 0.1 10^3/ul (0-0.2); ABS Eosinophils 0.1 10^3/ul (0-0.6); ABS Lymphocytes 1.3 10^3/ul (1.0-4.8); ABS Monocytes 0.6 10^3/ul (0-0.8); ABS Neutrophils 6.1 10^3/ul (1.5-7.7); Eosinophil % 1.3 %; Hematocrit 39 % (35-47); Hemoglobin 12.9 g/dL (12.0-16.0); Lymphocyte % 16.3 %; Mean Corpuscular HGB Conc 34 g/dL (31-36); Mean Corpuscular Hemoglobin 32 pg (27-31); Mean Corpuscular Volume 96 fL (80-97); Mean Platelet Volume 8.2 fL (7.4-10.4); Platelet Count 362 10^3/uL (150-450); Red Blood Count 4.02 10^6 /uL (3.70-4.87); Red Cell Distribution Width 15 % (10-15); White Blood Count 8.2 10^3/uL (3.5-10.8)
[2021-07-31] MEDS ORDERED: Aspirin EC 81 mg TAB.EC (enteric coated) PO SCH (09:00)
[2021-07-31] MEDS ORDERED: Lidocaine PATCH 5% PATCH TRANSDERM SCH (09:00)
[2021-07-31] MEDS ORDERED: Nystatin TOP POWDER 15 GM BTL TOPICAL SCH (09:00)
[2021-07-31 09:02] LABS: Calcium 8.1 mg/dL (8.6-10.3); Potassium 3.9 mmol/L (3.5-5.0)
[2021-07-31] MEDS ORDERED: cefTRIAXone 1 gm/50 mL NS BAG 1 GM/50 ML BAG IVPB SCH (14:00)
[2021-07-31 15:36] VITALS: BP 116/45
== END 2021-07-31 17:16 ==
LOC: EDHOLD 09:52 → ED 09:52 → SUATTDRO 17:39 → MED 07-31 00:12
PROVIDERS: ADMIT Nurse Practitioner; ATTEND Internal Medicine

== ENCOUNTER 2021-09-17 14:42 | Inpatient (IN) ==
[2021-09-17] MEDS ORDERED: HYDROcodone/ACETAMIN 5/325 mg TAB PO ONE (17:12)
[2021-09-17] MEDS ORDERED: Lidocaine PATCH 5% PATCH TRANSDERM ONE (19:59)
[2021-09-17] MEDS ORDERED: Magnesium Hydroxide LIQ 30 ML UDC PO PRN (20:48)
[2021-09-17] MEDS: Heparin 5000 UNITS/ML 1 mL VIAL SUBCUT SCH (21:53)
[2021-09-17 21:54] LABS: ABS Basophils 0.1 10^3/ul (0-0.2); ABS Eosinophils 0.1 10^3/ul (0-0.6); ABS Lymphocytes 1.8 10^3/ul (1.0-4.8); ABS Monocytes 0.7 10^3/ul (0-0.8); ABS Neutrophils 6.5 10^3/ul (1.5-7.7); Eosinophil % 1.2 %; Hematocrit 33 % (35-47); Hemoglobin 10.9 g/dL (12.0-16.0); Lymphocyte % 19.8 %; Mean Corpuscular HGB Conc 33 g/dL (31-36); Mean Corpuscular Hemoglobin 32 pg (27-31); Mean Corpuscular Volume 98 fL (80-97); Mean Platelet Volume 7.7 fL (7.4-10.4); Nucleated Red Blood Cells % 0.2; Platelet Count 361 10^3/uL (150-450); Red Cell Distribution Width 15 % (10-15); White Blood Count 9.2 10^3/uL (3.5-10.8)
[2021-09-17 21:58] LABS: Albumin 2.9 g/dL (3.2-5.2); CO2 Carbon Dioxide 20 mmol/L (22-32); Calcium 8.3 mg/dL (8.6-10.3); Chloride 101 mmol/L (101-111); Sodium 130 mmol/L (135-145)
[2021-09-17 22:04] LABS: ALT 13 U/L (7-52); Albumin/Globulin Ratio 0.9 (1-3); Alkaline Phosphatase 84 U/L (35-149); Blood Urea Nitrogen 17 mg/dL (6-24); Globulin 3.3 g/dL (2-4); Glucose 189 mg/dL (70-100); Total Protein 6.2 g/dL (6.4-8.9); eGFR CKD-EPI 89.3 (>60)
[2021-09-17 22:05] LABS: Anion Gap 9 mmol/L (2-11)
[2021-09-18] MEDS: Heparin 5000 UNITS/ML 1 mL VIAL SUBCUT SCH ×2 (08:37→20:11)
[2021-09-18] MEDS: Aspirin EC 81 mg TAB.EC (enteric coated) PO SCH (08:37)
[2021-09-18 09:57] LABS: Potassium Redraw 4.5 mmol/L (3.5-5.0)
[2021-09-18 10:38] LABS: Folate 16.47 ng/mL (5.90-24.80)
[2021-09-18 11:45] LABS: Calcium 8.5 mg/dL (8.6-10.3); Potassium 4.5 mmol/L (3.5-5.0); eGFR CKD-EPI 89.7 (>60)
[2021-09-18] MEDS ORDERED: Dextrose 50% Syringe 50 ml 25 GM/50 ML SYRINGE IV PUSH PRN (12:03)
[2021-09-18] MEDS: PTO: DAPAGLIFLOZIN 10 MG TAB (NF) PO SCH (12:03)
[2021-09-18 18:12] LABS: Urine Appearance Turbid; Urine Bilirubin Negative (Negative); Urine Blood 1+ (Negative); Urine Color Yellow; Urine Glucose 3+(>=500 mg/dL) (Negative); Urine Ketones Negative (Negative); Urine Nitrite Negative (Negative); Urine Protein 2+(100 mg/dL) (Negative); Urine Specific Gravity 1.025 (1.002-1.030); Urine Urobilinogen Negative (Negative)
[2021-09-19 05:13] LABS: ABS Basophils 0.1 10^3/ul (0-0.2); ABS Eosinophils 0.1 10^3/ul (0-0.6); ABS Lymphocytes 1.2 10^3/ul (1.0-4.8); ABS Monocytes 0.9 10^3/ul (0-0.8); Eosinophil % 0.9 %; Hematocrit 33 % (35-47); Hemoglobin 11.1 g/dL (12.0-16.0); Lymphocyte % 11.8 %; Mean Corpuscular HGB Conc 34 g/dL (31-36); Mean Corpuscular Hemoglobin 32 pg (27-31); Mean Corpuscular Volume 96 fL (80-97); Mean Platelet Volume 7.8 fL (7.4-10.4); Nucleated Red Blood Cells % 0.1; Platelet Count 348 10^3/uL (150-450); Red Blood Count 3.44 10^6 /uL (3.70-4.87); Red Cell Distribution Width 15 % (10-15); White Blood Count 10.3 10^3/uL (3.5-10.8)
[2021-09-19 05:51] LABS: Calcium 8.4 mg/dL (8.6-10.3); Potassium 4.4 mmol/L (3.5-5.0)
[2021-09-19] MEDS: Heparin 5000 UNITS/ML 1 mL VIAL SUBCUT SCH ×2 (07:57→20:22)
[2021-09-19] MEDS: Aspirin EC 81 mg TAB.EC (enteric coated) PO SCH (07:57)
[2021-09-19] MEDS: PTO: DAPAGLIFLOZIN 10 MG TAB (NF) PO SCH (09:21)
[2021-09-19] MEDS ORDERED: Cefepime ADVAN 1 GM in NS 0.9% 50 ML 50 ML IVPB SCH (18:00)
[2021-09-19] MEDS: Cefepime 1 GM in Dextrose 1 GM/50 ML BAG IV SCH (18:51)
[2021-09-20 05:53] LABS: ABS Basophils 0.1 10^3/ul (0-0.2); ABS Eosinophils 0.3 10^3/ul (0-0.6); ABS Lymphocytes 1.5 10^3/ul (1.0-4.8); ABS Monocytes 0.8 10^3/ul (0-0.8); ABS Neutrophils 6.1 10^3/ul (1.5-7.7); Eosinophil % 3.3 %; Hematocrit 33 % (35-47); Hemoglobin 10.9 g/dL (12.0-16.0); Lymphocyte % 17.5 %; Mean Corpuscular HGB Conc 33 g/dL (31-36); Mean Corpuscular Hemoglobin 32 pg (27-31); Mean Corpuscular Volume 98 fL (80-97); Mean Platelet Volume 7.8 fL (7.4-10.4); Platelet Count 328 10^3/uL (150-450); Red Blood Count 3.37 10^6 /uL (3.70-4.87); Red Cell Distribution Width 15 % (10-15); White Blood Count 8.8 10^3/uL (3.5-10.8)
[2021-09-20 06:33] LABS: Calcium 8.4 mg/dL (8.6-10.3); Potassium 4.1 mmol/L (3.5-5.0); eGFR CKD-EPI 90.6 (>60)
[2021-09-20] MEDS: Cefepime 1 GM in Dextrose 1 GM/50 ML BAG IV SCH (06:36)
[2021-09-20] MEDS: Aspirin EC 81 mg TAB.EC (enteric coated) PO SCH (08:30)
[2021-09-20] MEDS: Heparin 5000 UNITS/ML 1 mL VIAL SUBCUT SCH ×2 (08:31→20:34)
[2021-09-21 05:38] LABS: ABS Basophils 0.1 10^3/ul (0-0.2); ABS Eosinophils 0.4 10^3/ul (0-0.6); ABS Lymphocytes 1.5 10^3/ul (1.0-4.8); ABS Monocytes 0.8 10^3/ul (0-0.8); ABS Neutrophils 6.4 10^3/ul (1.5-7.7); Eosinophil % 4.5 %; Hematocrit 33 % (35-47); Hemoglobin 11.1 g/dL (12.0-16.0); Lymphocyte % 16.7 %; Mean Corpuscular HGB Conc 34 g/dL (31-36); Mean Corpuscular Hemoglobin 33 pg (27-31); Mean Corpuscular Volume 97 fL (80-97); Nucleated Red Blood Cells % 0.1; Platelet Count 323 10^3/uL (150-450); Red Cell Distribution Width 15 % (10-15); White Blood Count 9.3 10^3/uL (3.5-10.8)
[2021-09-21 06:23] LABS: Calcium 8.1 mg/dL (8.6-10.3); Potassium 4.2 mmol/L (3.5-5.0)
[2021-09-21] MEDS: Aspirin EC 81 mg TAB.EC (enteric coated) PO SCH (08:30)
[2021-09-21] MEDS: Heparin 5000 UNITS/ML 1 mL VIAL SUBCUT SCH ×2 (08:31→20:14)
[2021-09-21] MEDS ORDERED: NS 0.9% 500 ml BAG 500 ML IV SCH (11:00)
[2021-09-21 16:22] LABS: C Reactive Protein 82.62 mg/L (<8.01)
[2021-09-21] MEDS ORDERED: NS 0.9% 500 ml BAG 500 ML IV ONE (21:00)
[2021-09-22 05:55] LABS: ABS Eosinophils 0.2 10^3/ul (0-0.6); ABS Lymphocytes 1.6 10^3/ul (1.0-4.8); ABS Monocytes 0.9 10^3/ul (0-0.8); ABS Neutrophils 7.1 10^3/ul (1.5-7.7); Hematocrit 33 % (35-47); Hemoglobin 11.3 g/dL (12.0-16.0); Lymphocyte % 16.1 %; Mean Corpuscular HGB Conc 34 g/dL (31-36); Mean Corpuscular Hemoglobin 33 pg (27-31); Mean Corpuscular Volume 96 fL (80-97); Platelet Count 327 10^3/uL (150-450); Red Blood Count 3.44 10^6 /uL (3.70-4.87); Red Cell Distribution Width 15 % (10-15); White Blood Count 9.9 10^3/uL (3.5-10.8)
[2021-09-22 06:22] LABS: Calcium 7.9 mg/dL (8.6-10.3); Potassium 4.2 mmol/L (3.5-5.0); eGFR CKD-EPI 94.6 (>60)
[2021-09-22] MEDS ORDERED: Iohexol 300 (CONTRAST) 10 ML SDV IV ONE (08:12)
[2021-09-22] MEDS ORDERED: Iodixanol (CONTRAST) 320 MG/ML 100 ML SDV IV ONE (10:28)
[2021-09-22] MEDS: Heparin 5000 UNITS/ML 1 mL VIAL SUBCUT SCH ×2 (10:47→21:43)
[2021-09-22] MEDS: Aspirin EC 81 mg TAB.EC (enteric coated) PO SCH (10:47)
[2021-09-22 16:07] LABS: C Reactive Protein 74.09 mg/L (<8.01)
[2021-09-22 20:22] LABS: Osmolality Serum 277 mOsm/kg (275-295)
[2021-09-23 07:13] LABS: ABS Basophils 0.1 10^3/ul (0-0.2); ABS Eosinophils 0.3 10^3/ul (0-0.6); ABS Lymphocytes 1.4 10^3/ul (1.0-4.8); ABS Monocytes 0.9 10^3/ul (0-0.8); ABS Neutrophils 6.6 10^3/ul (1.5-7.7); Eosinophil % 3.5 %; Hematocrit 34 % (35-47); Hemoglobin 11.3 g/dL (12.0-16.0); Mean Corpuscular HGB Conc 34 g/dL (31-36); Mean Corpuscular Hemoglobin 33 pg (27-31); Mean Corpuscular Volume 98 fL (80-97); Mean Platelet Volume 7.9 fL (7.4-10.4); Platelet Count 330 10^3/uL (150-450); Red Blood Count 3.47 10^6 /uL (3.70-4.87); Red Cell Distribution Width 15 % (10-15); White Blood Count 9.3 10^3/uL (3.5-10.8)
[2021-09-23 07:48] LABS: Potassium 4.1 mmol/L (3.5-5.0); eGFR CKD-EPI 95.1 (>60)
[2021-09-23] MEDS: Aspirin EC 81 mg TAB.EC (enteric coated) PO SCH (08:32)
[2021-09-23] MEDS: Heparin 5000 UNITS/ML 1 mL VIAL SUBCUT SCH ×2 (08:34→21:02)
[2021-09-23 08:41] LABS: Urine Osmo 588 mOsm/kg (150-1150)
[2021-09-23] MEDS ORDERED: NS 0.9% 500 ml BAG 500 ML IV ONE (11:06)
[2021-09-23 12:14] LABS: TSH Ultra Thyroid Stim Horm 1.9 mcIU/mL (0.34-5.60)
[2021-09-24] MEDS: Aspirin EC 81 mg TAB.EC (enteric coated) PO SCH (08:40)
[2021-09-24] MEDS: Heparin 5000 UNITS/ML 1 mL VIAL SUBCUT SCH ×2 (08:45→20:06)
[2021-09-24 09:43] LABS: ABS Basophils 0.1 10^3/ul (0-0.2); ABS Eosinophils 0.3 10^3/ul (0-0.6); ABS Lymphocytes 1.2 10^3/ul (1.0-4.8); ABS Monocytes 0.8 10^3/ul (0-0.8); ABS Neutrophils 8.6 10^3/ul (1.5-7.7); Eosinophil % 2.7 %; Hematocrit 35 % (35-47); Hemoglobin 11.5 g/dL (12.0-16.0); Lymphocyte % 11.2 %; Mean Corpuscular HGB Conc 33 g/dL (31-36); Mean Corpuscular Hemoglobin 32 pg (27-31); Mean Corpuscular Volume 97 fL (80-97); Mean Platelet Volume 7.8 fL (7.4-10.4); Platelet Count 368 10^3/uL (150-450); Red Blood Count 3.57 10^6 /uL (3.70-4.87); Red Cell Distribution Width 15 % (10-15); White Blood Count 11.1 10^3/uL (3.5-10.8)
[2021-09-24 10:12] LABS: Potassium 4.3 mmol/L (3.5-5.0); eGFR CKD-EPI 93.5 (>60)
[2021-09-24] MEDS ORDERED: KCL 10 MEQ/50 ML IVPREMIX 10 MEQ/50 ML BAG ONE (14:43)
[2021-09-25 05:34] LABS: ABS Basophils 0.1 10^3/ul (0-0.2); ABS Eosinophils 0.3 10^3/ul (0-0.6); ABS Lymphocytes 1.7 10^3/ul (1.0-4.8); ABS Monocytes 0.8 10^3/ul (0-0.8); ABS Neutrophils 6.5 10^3/ul (1.5-7.7); Eosinophil % 3.1 %; Hematocrit 34 % (35-47); Hemoglobin 11.3 g/dL (12.0-16.0); Lymphocyte % 17.7 %; Mean Corpuscular HGB Conc 33 g/dL (31-36); Mean Corpuscular Hemoglobin 32 pg (27-31); Mean Corpuscular Volume 97 fL (80-97); Mean Platelet Volume 7.9 fL (7.4-10.4); Platelet Count 385 10^3/uL (150-450); Red Blood Count 3.54 10^6 /uL (3.70-4.87); Red Cell Distribution Width 15 % (10-15); White Blood Count 9.4 10^3/uL (3.5-10.8)
[2021-09-25 05:50] LABS: Calcium 8.2 mg/dL (8.6-10.3); eGFR CKD-EPI 94.6 (>60)
[2021-09-25] MEDS: Heparin 5000 UNITS/ML 1 mL VIAL SUBCUT SCH ×2 (08:15→21:03)
[2021-09-25] MEDS: Aspirin EC 81 mg TAB.EC (enteric coated) PO SCH (08:15)
[2021-09-26] MEDS: Heparin 5000 UNITS/ML 1 mL VIAL SUBCUT SCH (08:47)
[2021-09-26] MEDS: Aspirin EC 81 mg TAB.EC (enteric coated) PO SCH (08:54)
[2021-09-26 16:01] VITALS: BP 108/67
== END 2021-09-26 16:43 | disposition home or self-care (01) | DRG 559 ==
LOC: EDHOLD 14:42 → ED 14:42 → SUATTDRO 20:48 → MEDTELE 09-18 01:06 → SUATTDRO 09-19 14:00 → MEDTELE 09-24 05:05
PROVIDERS: ADMIT Hospitalist; ATTEND Internal Medicine